=== PATIENT | female | born 1960 | race Caucasian/White ===

== ENCOUNTER → 2016-12-14 | Outpatient (CLI) | payer BC ==
--- NOTE | 2016-12-14 14:26 | US ---
EXAMINATION: Soft tissue ultrasound of the neck HISTORY: Lump COMPARISON: None TECHNIQUE: Grayscale and color Doppler images obtained within the region of concern. FINDINGS: There is an oval well-circumscribed mass measuring 0.4 x 0.9 cm. This likely represents a nonpathologically enlarged cervical chain lymph node. There is no significant internal color Doppler flow. No shadowing. IMPRESSION: Small oval mass likely representing a nonpathologically enlarged cervical chain lymph no de.
== END ==
LOC: MW.US 09:56
PROVIDERS: ATTEND Family Medicine
DX: R22.1 Localized swelling, mass and lump, neck (principal); E11.9 Type 2 diabetes mellitus without complications
CPT/HCPCS: 76536-26; 76536-50; 81001

== ENCOUNTER 2019-10-07 09:52 | Emergency (ER) | payer BC, MEDICAID ==
[2019-10-07] MEDS ORDERED: Morphine 2 MG/ML Syringe IVPUSH ONE (10:46)
[2019-10-07] MEDS ORDERED: Ondansetron 4 MG/2 ML SDV IVPUSH ONE (10:46)
[2019-10-07 10:50] LABS: BLOOD UREA NITROGEN,BUN 14 mg/dL (7.0-18.0); CARBON DIOXIDE,CO2 31.7 mmol/L (21.0-32.0); CHLORIDE,CL 103 mmol/L (98-107); GLUCOSE RANDOM 124 mg/dL (74-106); SODIUM,NA 141 mmol/L (136-145)
--- NOTE | 2019-10-07 11:02 | EDM.PDOC ---
ED HPI GENERAL MEDICAL PROBLEM - General Chief Complaint: General Stated Complaint: CANT WALK Time Seen by Provider: 10/07/19 09:58 Source of Information: Reports: Patient History Limitations: Reports: No Limitations - History of Present Illness INITIAL COMMENTS - FREE TEXT/NARRATIVE: HISTORY AND PHYSICAL: History of present illness: Patient is a 59-year-old female who presents to the ED today with concern of progressive leg weakness over the past approximately 1 week, urinary incontinence, and mid to low back pain. Patient states she has had chronic back pain in which she has been working with the neurosurgeon Dr. Blue at [facility] in [place]. Patient states that at some point she thought she would need a fusion as she has some spinal stenosis and degenerative disc disease. Patient states that it has been several months since she has seen him. Patient states that over the course of the past week she has been having progressive leg weakness and is now unable to walk and get around. Patient states that her has been carrying her around the house and carried her into the ED today. Patient does state she has also been more constipated. Patient denies any other symptoms or concerns. Patient denies fever, chills, chest pain, shortness of breath, or cough. Denies headache, neck stiff ness, change in vision, syncope, or near syncope. Denies nausea, vomiting, abdominal pain, or dysuria. Has not noted any blood in urine or stool. Patient has been eating and drinking appropriately. Review of systems: As per history of present illness and below otherwise all systems reviewed and negative. Past medical history: As per history of present illness and as reviewed below otherwise noncontributory. Surgical history: As per history of present illness and as reviewed below otherwise noncontributory. Social history: See social history for further information Family history: As per history of present illness and as reviewed below otherwise noncontributory. Physical exam: General: Patient is alert, oriented, and in no acute distress. Patient laying comfortably on exam table. HEENT: Atraumatic, normocephalic, pupils equal and reactive bilaterally, negative for conjunctival pallor or scleral icterus, mucous membranes moist, TMs normal bilaterally, throat clear, neck supple, nontender, trachea midline. No drooling or trismus noted. No meningeal signs. No hot potato voice noted. Lungs: Clear to auscultation, breath sounds equal bilaterally, chest nontender. Heart: S1S2, regular rate and rhythm without overt murmur Abdomen: Soft, nondistended, nontender. Negative for masses or hepatosplenomegaly. Negative for costovertebral tenderness. Pelvis: Stable nontender. Genitourinary: Deferred. Rectal: Patient is wearing an attens. Tone slightly diminished but intact. Perineal sensation intact. There is early stages of breakdown of the skin of the coccyx without sign of infection. Skin: Intact, warm, dry. No lesions or rashes noted. Extremities: Atraumatic, negative for cords or calf pain. Neurovascular unremarkable. Neuro: Awake, alert, oriented. Cranial nerves II through XII unremarkable. Patient is able to bend bilateral lower extremities but unable to SLR bilaterally. Right LE slightly more weak than the left. Notes: Dr. Matos directly involved in patient care. Patient does have leg weakness and requires emergent MRI. Dr. Jeronimo, [facility], consulted on patient and accepting of transfer. Flight is arranged. Voices understanding and is agreeable to plan of care. Denies any further questions or concerns at this time. Diagnostics: CBC, CMP, UA, INR, Trop, EKG Therapeutics: Morphine, Zofran Impression: Bilateral leg weakness, new onset r/o spinal cord compression Urinary inconstance, new onset Low back pain Plan: Transfer to [facility] via flight to Dr. Jeronimo. Definitive disposition and diagnosis as appropriate pending reevaluation and review of above. chest Pain Score (Numeric/FACES): 7 middle back Pain Score (Numeric/FACES): 7 - Related Data Allergies Allergy/AdvReac Type Severity Reaction Status Date / Time cephalexin monohydrate Allergy Airway Verified 10/07/19 10:13 [From Keflex] Tightness haloperidol [From Haldol] Allergy Airway Verified 10/07/19 10:13 Tightness haloperidol lactate Allergy Airway Verified 10/07/19 10:13 [From Haldol] Tightness lisinopril Allergy Airway Verified 10/07/19 10:13 Tightness Penicillins Allergy Airway Verified 10/07/19 10:13 Tightness pertussis vaccine,fluid Allergy Airway Verified 10/07/19 10:13 [Pertussis Vaccine,Fluid] Tightness Home Meds: Home Meds Albuterol [Proair HFA] 2 puff INH Q6H PRN 06/21/14 [History] Losartan Potassium 1 tab PO DAILY 06/21/14 [History] hydroCHLOROthiazide [Hydrochlorothiazide] 1 cap PO DAILY 06/21/14 [History] metFORMIN [Glucophage] 1 tab PO BID 06/21/14 [History] Aspirin 1 dose PO ASDIRECTED 05/31/15 [History] Budesonide/Formoterol [Symbicort 80-4.5 MCG] 1 dose INH ASDIRECTED 05/31/15 [ History] FLUoxetine [PROzac] 1 dose PO ASDIRECTED 05/31/15 [History] Gabapentin [Neurontin] 100 mg PO BID 05/31/15 [History] Meloxicam [Mobic] 1 dose PO DAILY 05/31/15 [History] OXcarbazepine [Trileptal] 1 dose PO ASDIRECTED 05/31/15 [History] Omeprazole [Prilosec] 1 dose PO ASDIRECTED 05/31/15 [History] Past Medical History HEENT History: Reports: Cataract, Sinusitis Cardiovascular History: Reports: Hypertension, Other (See Below) Other Cardiovascular History: Pericardial Effusion Respiratory History: Reports: Asthma, COPD Gastrointestinal History: Reports: Diverticulosis, Gastritis, Irritable Bowel Syndrome, Other (See Below) Other Gastrointestinal History: Abdominal Hernia. Gastric Ulver Genitourinary History: Reports: Diabetic Nephropathy, UTI, Recurrent STORES CLERK History: Reports: None Musculoskeletal History: Reports: Arthritis, Back Pain, Chronic, Osteoarthritis , Other (See Below) Other Musculoskeletal History: Degenerative Bone Disease, spinal stenosis Neurological History: Reports: Migraines Psychiatric History: Reports: Anxiety, Depression, Panic Attack, Other (See Below) Other Psychiatric History: ETOH abuse Endocrine/Metabolic History: Reports: Diabetes, Type II Hematologic History: Reports: Anemia, Other (See Below) Other Hematologic History: Leukocytosis Immunologic History: Reports: None Oncologic (Cancer) History: Reports: None Dermatologic History: Reports: None - Infectious Disease History Infectious Disease History: Reports: MRSA - Past Surgical History Head Surgeries/Procedures: Reports: None HEENT Surgical History: Reports: None Cardiovascular Surgical History: Reports: Other (See Below) Other Cardiovascular Surgeries/Procedures: Pericardial effusion Respiratory Surgical History: Reports: None GI Surgical History: Reports: None Female Surgical History: Reports: None Endocrine Surgical History: Reports: None Neurological Surgical History: Reports: None Musculoskeletal Surgical History: Reports: None Oncologic Surgical History: Reports: None Dermatological Surgical History: Reports: None Social & Family History - Family History Family Medical History: Noncontributory - Tobacco Use Smoking Status *Q: Former Smoker Used Tobacco, but Quit: Yes Month/Year Tobacco Last Used: 2 months - Caffeine Use Caffeine Use: Reports: None - Recreational Drug Use Recreational Drug Use: No ED ROS GENERAL - Review of Systems Review Of Systems: Comprehensive ROS is negative, except as noted in HPI. ED EXAM, GENERAL - Physical Exam Exam: See Below (see dictation) Course - Vital Signs Last Recorded V/S: Last Vital Signs Temp 96.9 F 10/07/19 11:05 Pulse 62 10/07/19 11:05 Resp 18 10/07/19 11:05 BP 129/93 H 10/07/19 11:05 Pulse Ox 92 L 10/07/19 11:05 - Orders/Labs/Meds Orders: Active Orders 24 hr Category Date Time Status EKG Documentation Completion [RC] STAT Care 10/07/19 10:31 Active Wilkinson Catheter Insertion [Insert Urinary Catheter] [OM. Care 10/07/19 12:30 Ordered PC] Q24H Urinary Catheter Assessment [RC] ASDIRECTED Care 10/07/19 12:22 Active Labs: Laboratory Tests 10/07/19 10/07/19 10/07/19 Range/Units 10:15 10:15 10:15 WBC 10.26 (4.0-11.0) K/uL RBC 3.96 L (4.30-5.90) M/uL Hgb 12.3 (12.0-16.0) g/dL Hct 36.3 (36.0-46.0) % MCV 91.7 (80.0-98.0) fL MCH 31.1 (27.0-32.0) pg MCHC 33.9 (31.0-37.0) g/dL RDW Std Deviation 51.2 (28.0-62.0) fl RDW Coeff of Phi 15 (11.0-15.0) % Plt Count 289 (150-400) K/uL MPV 8.70 (7.40-12.00) fL Neut % (Auto) 73.7 (48.0-80.0) % Lymph % (Auto) 17.6 (16.0-40.0) % [place] % (Auto) 5.3 (0.0-15.0) % Eos % (Auto) 2.9 (0.0-7.0) % Baso % (Auto) 0.5 (0.0-1.5) % Neut # (Auto) 7.6 H (1.4-5.7) K/uL Lymph # (Auto) 1.8 (0.6-2.4) K/uL [place] # (Auto) 0.5 (0.0-0.8) K/uL Eos # (Auto) 0.3 (0.0-0.7) K/uL Baso # (Auto) 0.1 (0.0-0.1) K/uL Nucleated RBC % 0.0 /100WBC Nucleated RBCs # 0 K/uL INR 0.91 Sodium 141 (136-145) mmol/L Potassium 4.0 (3.5-5.1) mmol/L Chloride 103 (98-107) mmol/L Carbon Dioxide 31.7 (21.0-32.0) mmol/L BUN 14 (7.0-18.0) mg/dL Creatinine 0.5 L (0.6-1.0) mg/dL Est Cr Clr Drug Dosing 112.77 mL/min Estimated GFR (MDRD) > 60.0 ml/min Glucose 124 H (74-106) mg/dL Calcium 9.1 (8.5-10.1) mg/dL Total Bilirubin 0.2 (0.2-1.0) mg/dL AST 20 (15-37) IU/L ALT 33 (14-63) IU/L Alkaline Phosphatase 78 (46-116) U/L Troponin I (0.000-0.056) ng/mL Total Protein 6.8 (6.4-8.2) g/dL Albumin 3.5 (3.4-5.0) g/dL Globulin 3.3 (2.6-4.0) g/dL Albumin/Globulin Ratio 1.1 (0.9-1.6) Urine Color Urine Appearance Urine pH (5.0-8.0) Ur Specific [place] (1.001-1.035) Urine Protein (NEGATIVE) mg/dL Urine Glucose (UA) (NEGATIVE) mg/dL Urine Ketones (NEGATIVE) mg/dL Urine Occult Blood (NEGATIVE) Urine Nitrite (NEGATIVE) Urine Bilirubin (NEGATIVE) Urine Urobilinogen (<2.0) EU/dL Ur Leukocyte Esterase (NEGATIVE) 10/07/19 10/07/19 Range/Units 10:15 11:01 WBC (4.0-11.0) K/uL RBC (4.30-5.90) M/uL Hgb (12.0-16.0) g/dL Hct (36.0-46.0) % MCV (80.0-98.0) fL MCH (27.0-32.0) pg MCHC (31.0-37.0) g/dL RDW Std Deviation (28.0-62.0) fl RDW Coeff of Phi (11.0-15.0) % Plt Count (150-400) K/uL MPV (7.40-12.00) fL Neut % (Auto) (48.0-80.0) % Lymph % (Auto) (16.0-40.0) % [place] % (Auto) (0.0-15.0) % Eos % (Auto) (0.0-7.0) % Baso % (Auto) (0.0-1.5) % Neut # (Auto) (1.4-5.7) K/uL Lymph # (Auto) (0.6-2.4) K/uL [place] # (Auto) (0.0-0.8) K/uL Eos # (Auto) (0.0-0.7) K/uL Baso # (Auto) (0.0-0.1) K/uL Nucleated RBC % /100WBC Nucleated RBCs # K/uL INR Sodium (136-145) mmol/L Potassium (3.5-5.1) mmol/L Chloride (98-107) mmol/L Carbon Dioxide (21.0-32.0) mmol/L BUN (7.0-18.0) mg/dL Creatinine (0.6-1.0) mg/dL Est Cr Clr Drug Dosing mL/min Estimated GFR (MDRD) ml/min Glucose (74-106) mg/dL Calcium (8.5-10.1) mg/dL Total Bilirubin (0.2-1.0) mg/dL AST (15-37) IU/L ALT (14-63) IU/L Alkaline Phosphatase (46-116) U/L Troponin I < 0.050 (0.000-0.056) ng/mL Total Protein (6.4-8.2) g/dL Albumin (3.4-5.0) g/dL Globulin (2.6-4.0) g/dL Albumin/Globulin Ratio (0.9-1.6) Urine Color YELLOW Urine Appearance CLEAR Urine pH 6.5 (5.0-8.0) Ur Specific [place] <= 1.005 (1.001-1.035) Urine Protein NEGATIVE (NEGATIVE) mg/dL Urine Glucose (UA) NEGATIVE (NEGATIVE) mg/dL Urine Ketones NEGATIVE (NEGATIVE) mg/dL Urine Occult Blood NEGATIVE (NEGATIVE) Urine Nitrite NEGATIVE (NEGATIVE) Urine Bilirubin NEGATIVE (NEGATIVE) Urine Urobilinogen 0.2 (<2.0) EU/dL Ur Leukocyte Esterase NEGATIVE (NEGATIVE) Meds: Medications Discontinued Medications Generic Name Dose Route Start Last Admin Trade Name Winnie PRN Reason Stop Dose Admin Morphine Sulfate 2 mg 10/07/19 10:46 10/07/19 10:56 Morphine IVPUSH 10/07/19 10:47 2 mg ONETIME ONE Administration Ondansetron HCl 4 mg 10/07/19 10:46 10/07/19 10:56 Zofran IVPUSH 10/07/19 10:47 4 mg ONETIME ONE Administration Departure - Departure Time of Disposition: 11:02 Disposition: DC/Tfer to [facility] 02 Clinical Impression: Lower extremity weakness Qualifiers: Laterality: bilateral Qualified Code(s): R29.898 - Other symptoms and signs involving the musculoskeletal system Urinary incontinence Qualifiers: Urinary Incontinence type: unspecified incontinence Qualified Code(s): R32 - Unspecified urinary incontinence Low back pain Qualifiers: Chronicity: acute Back pain laterality: unspecified Sciatica presence: unspecified whether sciatica present Qualified Code(s): M54.5 - Low back pain - Discharge Information Referrals: Govind Perdomo MD [Primary Care Provider] - Forms: ED Department Discharge Sepsis Event Note - Evaluation Sepsis Screening Result: No Definite Risk - Focused Exam Vital Signs: Vital Signs Temp Pulse Resp BP Pulse Ox 10/07/19 11:05 96.9 F 62 18 129/93 H 92 L 10/07/19 10:14 96.6 F 65 18 143/74 H 98 Date Exam was Performed: 10/07/19 Time Exam was Performed: 14:23 - My Orders Last 24 Hours: My Active Orders 10/07/19 10:31 EKG Documentation Completion [RC] STAT 10/07/19 12:22 Urinary Catheter Assessment [RC] ASDIRECTED 10/07/19 12:30 Wilkinson Catheter Insertion [Insert Urinary Catheter] [OM.PC] Q24H - Assessment/Plan Last 24 Hours: My Active Orders 10/07/19 10:31 EKG Documentation Completion [RC] STAT 10/07/19 12:22 Urinary Catheter Assessment [RC] ASDIRECTED 10/07/19 12:30 Wilkinson Catheter Insertion [Insert Urinary Catheter] [OM.PC] Q24H
[2019-10-07 11:07] VITALS: BP 129/93; PULSE 62
== END 2019-10-07 12:41 ==
LOC: MW.ED 09:52
DX: R32 Unspecified urinary incontinence (principal); M54.5 Low back pain; R29.91 Unspecified symptoms and signs involving the musculoskeletal system; I10 Essential (primary) hypertension; J44.9 Chronic obstructive pulmonary disease, unspecified; E11.40 Type 2 diabetes mellitus with diabetic neuropathy, unspecified; F41.9 Anxiety disorder, unspecified; F32.9 Major depressive disorder, single episode, unspecified; Z87.891 Personal history of nicotine dependence; Z88.8 Allergy status to other drugs, medicaments and biological substances; Z88.0 Allergy status to penicillin; Z88.7 Allergy status to serum and vaccine; Z88.1 Allergy status to other antibiotic agents; Z79.899 Other long term (current) drug therapy; Z79.82 Long term (current) use of aspirin; Z79.84 Long term (current) use of oral hypoglycemic drugs
CPT/HCPCS: 36415; 51702; 80053; 81003; 84484; 85025; 85610; 93005; 96374; 96375; 99285; J2270; J2405

== ENCOUNTER 2019-10-11 02:15 | Emergency (ER) | payer BC ==
[2019-10-11] MEDS ORDERED: Glycerin Pediatric 1.2 GM Supp RECTAL ONE (03:19)
[2019-10-11] MEDS ORDERED: Sodium Chloride 0.9% 1,000 ML IV ONE (03:34)
--- NOTE | 2019-10-11 03:39 | CR ---
Indication: Abdominal pain, constipation Technique: Abdomen 1 view, 2 films Comparison: None Findings/Impression: Air is present within large and small intestine with a moderate amount of stool within the colon. Somewhat more amorphous loop of bowel within the left abdomen, possibly part of transverse colon although this could represent part of a small-bowel loop. Question whether this could represent part of a sentinel ileus with a small bowel obstruction possible although somewhat less likely. Serial radiographs may be useful in this differentiation as clinically desired. Status post lumbar spine surgery with skin vinayak as well as right upper quadrant surgical clips. Dictated by Hood Lamas MD @ Oct 11 2019 3:33AM Signed by Dr. Hood Lamas @ Oct 11 2019 3:37AM
[2019-10-11] MEDS: Bisacodyl 10 MG Supp RECTAL ONE ×2 (03:41→03:49)
[2019-10-11 04:03] LABS: BLOOD UREA NITROGEN,BUN 13 mg/dL (7.0-18.0); CARBON DIOXIDE,CO2 32.2 mmol/L (21.0-32.0); CHLORIDE,CL 93 mmol/L (98-107); GLUCOSE RANDOM 111 mg/dL (74-106); LIPASE 57 U/L (73-393); POTASSIUM,K 4.2 mmol/L (3.5-5.1); SODIUM,NA 132 mmol/L (136-145)
--- NOTE | 2019-10-11 05:02 | CR ---
INDICATION: Weakness TECHNIQUE: Chest 1 views COMPARISON: Chest x-ray 07/29/2018 FINDINGS: Cardiovascular and mediastinum: Heart size and vasculature are normal in caliber and appearance. Lungs and pleural spaces: Mild hyperinflation with reticulonodular interstitial prominence. Bones and soft tissues: Rightward curvature thoracic spine. IMPRESSION: Mild hyperinflation suggesting underlying emphysema or reactive airways disease. Reticulonodular interstitial prominence is mostly similar to the prior examination and likely represents mild pulmonary fibrosis. However, this does appear to be asymmetrically greater within the left midlung which could represent progressive fibrosis or if there are signs/symptoms of infection, a bronchiolitis. Dictated by Hood Lamas MD @ Oct 11 2019 4:58AM Signed by Dr. Hood Lamas @ Oct 11 2019 5:01AM
[2019-10-11] MEDS ORDERED: Doxycycline 100 MG Cap PO ONE (05:07)
--- NOTE | 2019-10-11 05:10 | EDM.PDOC ---
ED HPI GENERAL MEDICAL PROBLEM - General Chief Complaint: Back Pain or Injury Stated Complaint: AMB Time Seen by Provider: 10/11/19 02:22 - History of Present Illness INITIAL COMMENTS - FREE TEXT/NARRATIVE: HPI 59-year-old female with an apparent history of spinal stenosis now postop day ~ 4 from low T-spine/high L spine surgery (in [place], patient unsure of details , records presently unavailable), presents complaining of one day of generalized malaise and weakness without localizing symptoms. Patient reports that she is been at home for one day and is been feeling unwell. Patient has not stooled since her surgery. Patient continues to take PO adequately. Triage note: EMS states patient had back surgery Saturday morning. Currently having back pain, dizziness this evening. M/S/F/SocHx notable for: please see HPI; remainder reviewed with patient and in chart. ROS: Negative constitutional, eye, cardiovascular, pulmonary, GI, , MSK, skin , neurologic, psychiatric, endocrine unless noted in the HPI. Exam HR 75, BP 122/6 9, RR 17, T 35.8C, SaO2 93% on room air. Gen: Pleasant, non-toxic appearing, resting comfortably. HEENT: NC, AT, PEERL, EOMI. Resp: Clear to auscultation bilaterally, normal work of breathing, no accessory muscle usage. Card: Regular rate and rhythm with no murmurs, rubs, or gallops, extremities warm and well perfused. GI: Non-tender to palpation throughout all quadrants, no focal tenderness at McBurney's point, negative Gonzales's sign, non-distended, no rebound or guarding. : No suprapubic tenderness to palpation. MSK: No visible deformities, strength and tone without visually appreciable deficit. Skin: Normal color with no visible lesions. Neuro: alert and oriented 3, no facial asymmetry, vision and hearing WNL. Low T-spine/high L spine with a well-healing midline surgical incision, vinayak intact. Minimal surrounding reactive erythema, no fluctuance or crepitus. Psych: Mood and affect appropriate. Labs / Imaging: UA - rare bacteria, rare epithelial cells, negative nitrate, small leukocyte esterase. WBC 14.4, HB 12.1, sodium 132, potassium 4.2, EtOH <3. lactic acid 0.8 KUB: Air is present within large and small intestine with a moderate amount of stool within the colon. Somewhat more amorphous loop of bowel within the left abdomen, possibly part of transverse colon although this could represent part of a small-bowel loop. Question whether this could represent part of a sentinel ileus with a small bowel obstruction possible although somewhat less likely. Serial radiographs may be useful in this differentiation as clinically desired. Status post lumbar spine surgery with skin vinayak as well as right upper quadrant surgical clips. CXR: Mild hyperinflation suggesting underlying emphysema or reactive airways disease. Reticulonodular interstitial prominence is mostly similar to the prior examination and likely represents mild pulmonary fibrosis. However, this does appear to be asymmetrically greater within the left midung which could represent progressive fibrosis or if there are signs/symptoms of infection, a bronchiolitis. MDM Previous chart, nursing note, labs, imaging, and vitals reviewed. A: 59-year-old female with an apparent history of spinal stenosis now postop day ~4 from low T-spine/high L spine surgery (in [place], patient unsure of details, records presently unavailable), presents complaining of one day of generalized malaise and weakness without localizing symptoms. DDx: dehydration, electrolyte abnormalities, pneumonia, UTI, surgical site infection, surgical site hematoma. Evaluation: patient without discernible abnormalities, UA without clear evidence of infection, abdominal exam benign, KUB demonstrate constipation ( although ileus of possible SBO is noted on the radiology read, this does not fit with the patients overall clinical history), surgical site is without evidence of infection, and the patient has normal perineal sensation and normal rectal tone (observed during enema administration). Chest x-ray is suggestive of possible pneumonia, given the patients intubation and multiple risk factors (as well as evaluation below), it was felt to be in her best interest to treat empirically. However there is no cough or fever suggesting against pneumonia. It is not clear if the patient has a clinically significant acute process. The patient had a post void residual of 118 MLs, this was concerning for possible retention, as this may be driven by constipation (rather than surgical site complications), the patients constipation was treated and she was given 1 L NS hydration to expedite bladder filling. The patient had good urine output, voided again, and had a post void residual of 147 MLs. Throughout this time the patient was without any further signs of cauda equina syndrome. The patient s neurosurgeon, Dr. Cerda by phone, the patients laboratory studies, including leukocytosis), physical exam, bladder scans, and the remainder the evaluation reviewed. For a postoperative patient for cauda equina syndrome was felt that post void bladder volumes up to 150 ML is normal and not customer retention representative of acute pathology. The leukocytosis was not felt to represent infection, rather normal postoperative changes. There are no features at the time of the patients care to suggest epidural infection (absence of fever, tenderness, overlying changes, and normal neuro exam) or epidural hematoma. Disposition: patient was discharged with routine follow-up and return to care precautions. Impression: weakness, constipation, ?pneumonia. - Related Data Allergies Allergy/AdvReac Type Severity Reaction Status Date / Time buspirone Allergy Itching Verified 10/11/19 02:24 cefuroxime [From Ceftin] Allergy Other Verified 10/11/19 02:24 cephalexin monohydrate Allergy Airway Verified 10/11/19 02:24 [From Keflex] Tightness haloperidol [From Haldol] Allergy Airway Verified 10/11/19 02:24 Tightness haloperidol lactate Allergy Airway Verified 10/11/19 02:24 [From Haldol] Tightness lisinopril Allergy Airway Verified 10/11/19 02:24 Tightness Penicillins Allergy Airway Verified 10/11/19 02:24 Tightness pertussis vaccine,fluid Allergy Airway Verified 10/11/19 02:24 [Pertussis Vaccine,Fluid] Tightness Sulfa (Sulfonamide Allergy Other Verified 10/11/19 02:24 Antibiotics) Home Meds: Home Meds Albuterol [Proair HFA] 2 puff INH Q6H PRN 06/21/14 [History] Losartan Potassium 1 tab PO DAILY 06/21/14 [History] hydroCHLOROthiazide [Hydrochlorothiazide] 1 cap PO DAILY 06/21/14 [History] metFORMIN [Glucophage] 1 tab PO BID 06/21/14 [History] Aspirin 1 dose PO ASDIRECTED 05/31/15 [History] Budesonide/Formoterol [Symbicort 80-4.5 MCG] 1 dose INH ASDIRECTED 05/31/15 [ History] FLUoxetine [PROzac] 1 dose PO ASDIRECTED 05/31/15 [History] Gabapentin [Neurontin] 100 mg PO BID 05/31/15 [History] Meloxicam [Mobic] 1 dose PO DAILY 05/31/15 [History] OXcarbazepine [Trileptal] 1 dose PO ASDIRECTED 05/31/15 [History] Omeprazole [Prilosec] 1 dose PO ASDIRECTED 05/31/15 [History] ARIPiprazole [Abilify] mg PO DAILY 10/11/19 [History] Cyclobenzaprine [Flexeril] mg PO ASDIRECTED PRN 10/11/19 [History] Doxycycline [Vibramycin] 100 mg PO DAILY #19 tab 10/11/19 [Rx] Hydrocodone/Acetaminophen [Hydrocodon-Acetaminophen 5-325] PO ASDIRECTED PRN 05/22 [History] traZODone HCl [Trazodone HCl] 150 mg PO BEDTIME 10/11/19 [History] Past Medical History HEENT History: Reports: Cataract, Sinusitis Cardiovascular History: Reports: Hypertension, Other (See Below) Other Cardiovascular History: Pericardial Effusion Respiratory History: Reports: Asthma, COPD Gastrointestinal History: Reports: Diverticulosis, Gastritis, Irritable Bowel Syndrome, Other (See Below) Other Gastrointestinal History: Abdominal Hernia. Gastric Ulver Genitourinary History: Reports: Diabetic Nephropathy, UTI, Recurrent STUDENT FINANCE SPECIALIST History: Reports: None Musculoskeletal History: Reports: Arthritis, Back Pain, Chronic, Osteoarthritis , Other (See Below) Other Musculoskeletal History: Degenerative Bone Disease, spinal stenosis Neurological History: Reports: Migraines Psychiatric History: Reports: Anxiety, Depression, Panic Attack, Other (See Below) Other Psychiatric History: ETOH abuse Endocrine/Metabolic History: Reports: Diabetes, Type II Hematologic History: Reports: Anemia, Other (See Below) Other Hematologic History: Leukocytosis Immunologic History: Reports: None Oncologic (Cancer) History: Reports: None Dermatologic History: Reports: None - Infectious Disease History Infectious Disease History: Reports: MRSA - Past Surgical History Head Surgeries/Procedures: Reports: None HEENT Surgical History: Reports: None Cardiovascular Surgical History: Reports: Other (See Below) Other Cardiovascular Surgeries/Procedures: Pericardial effusion Respiratory Surgical History: Reports: None GI Surgical History: Reports: None Female Surgical History: Reports: None Endocrine Surgical History: Reports: None Neurological Surgical History: Reports: None Musculoskeletal Surgical History: Reports: None Oncologic Surgical History: Reports: None Dermatological Surgical History: Reports: None Social & Family History - Family History Family Medical History: Noncontributory - Tobacco Use Smoking Status *Q: Former Smoker Used Tobacco, but Quit: Yes Month/Year Tobacco Last Used: 2019 - Caffeine Use Caffeine Use: Reports: Coffee - Recreational Drug Use Recreational Drug Use: Yes Recreational Drug Type: Reports: Marijuana/Hashish Recreational Drug Use Frequency: Daily ED ROS GENERAL - Review of Systems Review Of Systems: See Below ED EXAM, GENERAL - Physical Exam Exam: See Below Course - Vital Signs Last Recorded V/S: Last Vital Signs Temp 35.8 C 10/11/19 02:27 Pulse 75 10/11/19 02:27 Resp 17 10/11/19 02:27 BP 122/69 10/11/19 02:27 Pulse Ox 93 L 10/11/19 02:27 - Orders/Labs/Meds Orders: Active Orders 24 hr Category Date Time Status Communication Order [RC] STAT Care 10/11/19 03:19 Active Enema [RC] ASDIRECTED Care 10/11/19 03:19 Active Labs: Laboratory Tests 10/11/19 10/11/19 10/11/19 Range/Units 02:32 03:40 03:40 WBC 14.84 H (4.0-11.0) K/uL RBC 3.85 L (4.30-5.90) M/uL Hgb 12.1 (12.0-16.0) g/dL Hct 34.6 L (36.0-46.0) % MCV 89.9 (80.0-98.0) fL MCH 31.4 (27.0-32.0) pg MCHC 35.0 (31.0-37.0) g/dL RDW Std Deviation 48.6 (28.0-62.0) fl RDW Coeff of Phi 15 (11.0-15.0) % Plt Count 316 (150-400) K/uL MPV 8.70 (7.40-12.00) fL Add Manual Diff YES Neutrophils % (Manual) 72 (48.0-80.0) % Lymphocytes % (Manual) 10 L (16.0-40.0) % Monocytes % (Manual) 13 (0.0-15.0) % Eosinophils % (Manual) 5 (0.0-7.0) % Nucleated RBC % 0.0 /100WBC Absolute Seg Neuts 10.7 H (1.4-5.7) Lymphocytes # (Manual) 1.5 (0.6-2.4) Monocytes # (Manual) 1.9 H (0.0-0.8) Eosinophils # (Manual) 0.7 (0.0-0.7) Nucleated RBCs # 0 K/uL Lactate 0.8 (0.20-2.00) mmol/L Sodium (136-145) mmol/L Potassium (3.5-5.1) mmol/L Chloride (98-107) mmol/L Carbon Dioxide (21.0-32.0) mmol/L BUN (7.0-18.0) mg/dL Creatinine (0.6-1.0) mg/dL Est Cr Clr Drug Dosing mL/min Estimated GFR (MDRD) ml/min Glucose (74-106) mg/dL Calcium (8.5-10.1) mg/dL Total Bilirubin (0.2-1.0) mg/dL AST (15-37) IU/L ALT (14-63) IU/L Alkaline Phosphatase (46-116) U/L Total Protein (6.4-8.2) g/dL Albumin (3.4-5.0) g/dL Globulin (2.6-4.0) g/dL Albumin/Globulin Ratio (0.9-1.6) Lipase (73-393) U/L Urine Color YELLOW Urine Appearance CLEAR Urine pH 7.0 (5.0-8.0) Ur Specific Cheshire <= 1.005 (1.001-1.035) Urine Protein NEGATIVE (NEGATIVE) mg/dL Urine Glucose (UA) NEGATIVE (NEGATIVE) mg/dL Urine Ketones NEGATIVE (NEGATIVE) mg/dL Urine Occult Blood NEGATIVE (NEGATIVE) Urine Nitrite NEGATIVE (NEGATIVE) Urine Bilirubin NEGATIVE (NEGATIVE) Urine Urobilinogen 0.2 (<2.0) EU/dL Ur Leukocyte Esterase SMALL H (NEGATIVE) Urine RBC 0-1 (0-2/HPF) Urine WBC 0-2 (0-5/HPF) Ur Epithelial Cells RARE (NONE-FEW) Urine Bacteria RARE (NEGATIVE) Ethyl Alcohol mg/dL 10/11/19 10/11/19 Range/Units 03:40 03:40 WBC (4.0-11.0) K/uL RBC (4.30-5.90) M/uL Hgb (12.0-16.0) g/dL Hct (36.0-46.0) % MCV (80.0-98.0) fL MCH (27.0-32.0) pg MCHC (31.0-37.0) g/dL RDW Std Deviation (28.0-62.0) fl RDW Coeff of Phi (11.0-15.0) % Plt Count (150-400) K/uL MPV (7.40-12.00) fL Add Manual Diff Neutrophils % (Manual) (48.0-80.0) % Lymphocytes % (Manual) (16.0-40.0) % Monocytes % (Manual) (0.0-15.0) % Eosinophils % (Manual) (0.0-7.0) % Nucleated RBC % /100WBC Absolute Seg Neuts (1.4-5.7) Lymphocytes # (Manual) (0.6-2.4) Monocytes # (Manual) (0.0-0.8) Eosinophils # (Manual) (0.0-0.7) Nucleated RBCs # K/uL Lactate (0.20-2.00) mmol/L Sodium 132 L (136-145) mmol/L Potassium 4.2 (3.5-5.1) mmol/L Chloride 93 L (98-107) mmol/L Carbon Dioxide 32.2 H (21.0-32.0) mmol/L BUN 13 (7.0-18.0) mg/dL Creatinine 0.5 L (0.6-1.0) mg/dL Est Cr Clr Drug Dosing 112.77 mL/min Estimated GFR (MDRD) > 60.0 ml/min Glucose 111 H (74-106) mg/dL Calcium 9.6 (8.5-10.1) mg/dL Total Bilirubin 0.3 (0.2-1.0) mg/dL AST 26 (15-37) IU/L ALT 42 (14-63) IU/L Alkaline Phosphatase 85 (46-116) U/L Total Protein 7.6 (6.4-8.2) g/dL Albumin 3.4 (3.4-5.0) g/dL Globulin 4.2 H (2.6-4.0) g/dL Albumin/Globulin Ratio 0.8 L (0.9-1.6) Lipase 57 L (73-393) U/L Urine Color Urine Appearance Urine pH (5.0-8.0) Ur Specific Cheshire (1.001-1.035) Urine Protein (NEGATIVE) mg/dL Urine Glucose (UA) (NEGATIVE) mg/dL Urine Ketones (NEGATIVE) mg/dL Urine Occult Blood (NEGATIVE) Urine Nitrite (NEGATIVE) Urine Bilirubin (NEGATIVE) Urine Urobilinogen (<2.0) EU/dL Ur Leukocyte Esterase (NEGATIVE) Urine RBC (0-2/HPF) Urine WBC (0-5/HPF) Ur Epithelial Cells (NONE-FEW) Urine Bacteria (NEGATIVE) Ethyl Alcohol <3 mg/dL Meds: Medications Discontinued Medications Generic Name Dose Route Start Last Admin Trade Name Laronq PRN Reason Stop Dose Admin Bisacodyl 10 mg 10/11/19 03:19 10/11/19 03:49 Dulcolax RECTAL 10/11/19 03:20 Not Given ONETIME ONE Doxycycline Hyclate 100 mg 10/11/19 05:07 Vibramycin PO 10/11/19 05:08 ONETIME ONE Glycerin 1.5 gm 10/11/19 03:19 10/11/19 03:49 Sani-Supp Pediatric RECTAL 10/11/19 03:20 Not Given ONETIME ONE Sodium Chloride 1,000 mls @ 1,000 mls/hr 10/11/19 03:34 10/11/19 03:41 Normal Saline IV 10/11/19 04:33 1,000 mls/hr .Bolus ONE Administration Departure - Departure Time of Disposition: 05:08 Disposition: Home, Self-Care 01 Clinical Impression: Weakness, Constipation - Discharge Information Prescriptions: Doxycycline [Vibramycin] 100 mg PO DAILY #19 tab Referrals: PCP,None [Primary Care Provider] - Additional Instructions: You were in seen in the [facility] Emergency Department for evaluation of weakness, at the time of your evaluation you were found to be constipated and there were features on your asks rate suggestive (but not definitively diagnostic) of pneumonia, you have been prescribed doxycycline for treatment of the possible pneumonia. No further significant abnormalities were noted. Should you have any further changes in your symptoms please return immediately to the emergency department. Please read and follow all of the instructions below. Please follow up with your primary care physician within 2 days for repeat evaluation further care as needed. When calling for follow-up care, please make the office aware that this follow-up is from your recent emergency room visit. If for any reason you are refused follow-up, please contact the [facility] Emergency Department at and asked to speak to the emergency department charge nurse. Your care today was limited to identifying and treating emergent medical problems only. Many people have subtle differences in their test results that require follow up with their outpatient physician(s) to correctly determine if this represents a normal variation or concerning abnormality with respect to your specific health. The care given to you today was limited to identifying and treating emergent medical problems - you need to request a copy of all of your medical records from today's visit and follow up with your outpatient physician(s) to review both today's visit and your overall health. If you have any new symptoms or if you are at all concerned about your health please return immediately to the emergency department. Prescriptions: If you are uninsured or have financial difficulties with filling your prescription(s), you may consider using a free pharmacy discount service such as [employer] ([employer]) or [employer] ([employer]). These services allow you to search for a medication on your phone (or computer) and obtain a coupon that usually has a significant discount from the list byers at a pharmacy. Your physician as well as [facility] does not have a financial relationship with either of these services. You may also wish to speak with your physician to determine if lower cost prescriptions are possible. Obtaining primary care: 1. [facility] provides pediatrics (children), family medicine (children, adults, and some obstetrical care), and internal medicine (adults). Further specialty care is also available. Same day appointments are available. They may be contacted at [phone] and are open Saturday through Saturday 8 AM to [address] [facility] are located at [facility], [address] [place] [address]. 2. [facility] offers family medicine, internal medicine, womens health, and further specialty care. [facility] may be contacted at [phone]. [facility] is located at [address] [place], [address]. 3. If you have health insurance, please also contact your insurer for a list of accepting providers under your policy, you may contact these providers for further health care. Occupational health: Work related injuries may consider following up with [facility], . Occupational health services are located at [address] [place] [address] and are open Saturday through Saturday from 7: 30 am to 5:00 pm. Obstetrical and Gynecological Care: [facility], , Saturday through Saturday 8 AM to 5 PM. [address], [place] [address]. Eyecare: If you have an eye injury you should follow up with your dental ceramist or with [facility], at [phone] or [phone] , they are located at [address] [place] [address]. Dental Care David Manjarrez DDS. [address] [place], [place]. Ph. [phone] Rip Manjarrez DDS MS. [address] [facility] 104, [place], [place]. Ph. Jf Cordero DDS. [address] [place] [address]. Ph. [phone] Mehdi Mckeon DDS. [address] [facility] 4 [place], [place]. Ph. [phone] Mo Guerrero DDS PC. [address] [facility] [[email or web address]] [address] [place], [place]. Ph. [phone] Nydia Dover DDS. [address] [facility]. Ph. [phone] [facility]. [address] [place], [place]. Ph. [phone] [facility]. [address] [place] [address], [place], [place]. Ph. [phone] [facility] [address] [place] [address]. Ph. Sincemanisha Cho. [address] [place] [address] 1. [place], [place]. Ph. [phone] [facility]. [address] [facility] [place] Ph. [phone] Pneumonia Pneumonia is an infection of the lungs that causes coughing, fever, and trouble breathing. It is a serious illness, especially in young children, people older than 65, and people with other health problems. Pneumonia is usually caused by bacteria but can also be caused by viruses or other germs. You have been prescribed an antibiotic and possibly a steroid (prednisone). Take the antibiotic for the entire prescription. Return if you have difficulty breathing, chest pain, shaking chills, lighheadedness, shortness of breath, a temperature greater than 102F, lightheaded, or are otherwise concerned about your health. You may take Ibuprofen (Motrin) and Acetaminophen (Tylenol) as directed on the bottle for relief of pain. Stay well hydrated and get plenty of rest. Please see you primary care physician if you do not start to feel better in 3-5 days. You should also receive a yearly influenza vaccine and a pneumococcal pneumonia vaccine every 5 years Doxycycline (Brand Name: Vibramycin) Please take this medication as prescribed. Please take the medication for the full duration of the precription. If you feel you are experiencing a side effect, please call your physician or the emergency department. This medication may rarely cause mild to severe rashes that hurt with exposure to sunlight. Please stop this medication and contact your doctor if you have a rash. WARNING/CAUTION: Even though it may be rare, some people may have very bad and sometimes deadly side effects when taking a drug. Tell your doctor or get medical help right away if you have any of the following signs or symptoms that may be related to a very bad side effect: Signs of an allergic reaction, like rash; hives; itching; red, swollen, blistered, or peeling skin with or without fever; wheezing; tightness in the chest or throat; trouble breathing or talking; unusual hoarseness; or swelling of the mouth, face, lips, tongue, or throat. Signs of liver problems like dark urine, feeling tired, not hungry, upset stomach or stomach pain, light-colored stools, throwing up, or yellow skin or eyes. Chest pain. Not able to pass urine or change in how much urine is passed. Fever or chills. Sore throat. Throat irritation. Trouble swallowing. Any bruising or bleeding that is not normal. Joint pain. Feeling very tired or weak. Vaginal itching or discharge. It is common to have diarrhea when taking this drug. Rarely, a very bad form of diarrhea called Clostridium difficile (C diff)-associated diarrhea (CDAD ) may occur. Sometimes, this has led to a deadly bowel problem (colitis). CDAD may happen while you are taking this drug or within a few months after you stop taking it. Call your doctor right away if you have stomach pain or cramps, very loose or watery stools, or bloody stools. Do not try to treat loose stools without first checking with your doctor. Raised pressure in the brain has happened with this drug. Most of the time, this will go back to normal after this drug is stopped. Sometimes, loss of eyesight may happen and may not go away even after this drug is stopped. Call your doctor right away if you have a headache or eyesight problems like blurred eyesight, seeing double, or loss of eyesight. A very bad skin reaction (Recio-Yon syndrome/toxic epidermal necrolysis) may happen. It can cause very bad health problems that may not go away, and sometimes . Get medical help right away if you have signs like red, swollen, blistered, or peeling skin (with or without fever); red or irritated eyes; or sores in your mouth, throat, nose, or eyes. What are some other side effects of this drug? All drugs may cause side effects. However, many people have no side effects or only have minor side effects. Call your doctor or get medical help if any of these side effects or any other side effects bother you or do not go away: Not hungry. Upset stomach or throwing up. Loose stools (diarrhea). These are not all of the side effects that may occur. If you have questions about side effects, call your doctor. Call your doctor for medical advice about side effects. What do I need to tell my doctor BEFORE I take this drug? If you have an allergy to doxycycline or any other part of this drug. If you are allergic to any drugs like this one, any other drugs, foods, or other substances. Tell your doctor about the allergy and what signs you had, like rash; hives; itching; shortness of breath; wheezing; cough; swelling of face, lips, tongue, or throat; or any other signs. If you are taking any of these drugs: Acitretin, isotretinoin, or a penicillin. This is not a list of all drugs or health problems that interact with this drug. Tell your doctor and pharmacist about all of your drugs (prescription or OTC , natural products, vitamins) and health problems. You must check to make sure that it is safe for you to take this drug with all of your drugs and health problems. Do not start, stop, or change the dose of any drug without checking with your doctor. What are some things I need to know or do while I take this drug? You may get sunburned more easily. Avoid sun, sunlamps, and tanning beds. Use sunscreen and wear clothing and eyewear that protects you from the sun. control pills and other hormone-based control may not work as well to prevent . Use some other kind of control also like a condom when taking this drug. This drug may cause a change in tooth color to [id number] in children younger than 8 years old. If this change of tooth color happens, it will not go away. Talk with the doctor. Do not give to a child younger than 8 years old unless other drugs cannot be used or have not worked. Talk with the doctor. This drug may cause harm to the unborn baby if you take it while you are . Tell your doctor if you are or plan on getting . You will need to talk about the benefits and risks of using this drug while you are . Tell your doctor if you are breast-feeding. You will need to talk about any risks to your baby. Sepsis Event Note - Evaluation Sepsis Screening Result: No Definite Risk - Focused Exam Vital Signs: Vital Signs Temp Pulse Resp BP Pulse Ox 10/11/19 02:27 35.8 C 75 17 122/69 93 L Date Exam was Performed: 10/11/19 Time Exam was Performed: 05:08 - My Orders Last 24 Hours: My Active Orders 10/11/19 03:19 Communication Order [RC] STAT Enema [RC] ASDIRECTED - Assessment/Plan Last 24 Hours: My Active Orders 10/11/19 03:19 Communication Order [RC] STAT Enema [RC] ASDIRECTED
[2019-10-11 05:37] VITALS: BP 120/81; PULSE 70
== END 2019-10-11 05:35 | disposition home or self-care (01) ==
LOC: MW.ED 02:15
DX: R53.1 Weakness (principal); K59.00 Constipation, unspecified; I10 Essential (primary) hypertension; J44.9 Chronic obstructive pulmonary disease, unspecified; E11.40 Type 2 diabetes mellitus with diabetic neuropathy, unspecified; F41.9 Anxiety disorder, unspecified; F32.9 Major depressive disorder, single episode, unspecified; Z87.891 Personal history of nicotine dependence; Z88.8 Allergy status to other drugs, medicaments and biological substances; Z88.1 Allergy status to other antibiotic agents; Z88.0 Allergy status to penicillin; Z88.7 Allergy status to serum and vaccine; Z88.2 Allergy status to sulfonamides; Z79.899 Other long term (current) drug therapy; Z79.82 Long term (current) use of aspirin; Z79.84 Long term (current) use of oral hypoglycemic drugs
CPT/HCPCS: 36415; 71045; 74018; 80053; 80307; 81001; 83605; 83690; 85025; 96360; 99284; A9270; J7030

== ENCOUNTER 2022-01-16 11:42 | Inpatient (IN) | payer BC ==
[2022-01-16] MEDS ORDERED: Sodium Chloride 0.9% 10 ML Syringe FLUSH PRN (12:15)
[2022-01-16] MEDS: Sodium Chloride 0.9% 2.5 ML Syringe FLUSH PRN ×2 (12:17→14:02)
[2022-01-16 12:38] LABS: BLOOD UREA NITROGEN,BUN 17 mg/dL (7.0-18.0); CARBON DIOXIDE,CO2 27.3 mmol/L (21.0-32.0); CHLORIDE,CL 89 mmol/L (98-107); GLUCOSE RANDOM 188 mg/dL (74-106); POTASSIUM,K 3.6 mmol/L (3.5-5.1); SODIUM,NA 127 mmol/L (136-145)
[2022-01-16 12:41] LABS: LIPASE 8 U/L (73-393)
[2022-01-16] MEDS ORDERED: Ondansetron 4 MG/2 ML SDV IVPUSH ONE (12:49)
[2022-01-16] MEDS ORDERED: Sodium Chloride 0.9% 1,000 ML IV ONE ×2 (12:49→14:53)
[2022-01-16] MEDS ORDERED: HYDROmorphone 1 MG/ML Syringe IVPUSH ONE (12:49)
[2022-01-16] MEDS ORDERED: Ketorolac 30 MG/ML SDV IVPUSH ONE (12:50)
[2022-01-16] MEDS ORDERED: Iopamidol 755 MG/ML 500 ML Multipack Bottle IVPUSH STA (15:48)
[2022-01-16] MEDS ORDERED: HYDROmorphone 2 MG/ML Syringe IVPUSH ONE (15:59)
[2022-01-16] MEDS ORDERED: Meropenem 1 GM in Sodium Chloride 0.9% 100 ML IV ONE (16:24)
[2022-01-16] MEDS ORDERED: VANCOmycin 1.25 GM/250 ML 1.25 GM in Premix Bag 1 BAG IV ONE (17:00)
[2022-01-16] MEDS ORDERED: Meropenem Premix 1 GM in Premix Bag 1 BAG IV ONE (17:00)
[2022-01-16] MEDS ORDERED: Albuterol/Ipratropium 3.0-0.5 MG/3 ML Neb Soln NEB PRN (17:58)
[2022-01-16] MEDS ORDERED: Ondansetron 4 MG/2 ML SDV IVPUSH PRN (18:04)
[2022-01-16] MEDS ORDERED: Albuterol 8 GM Inhaler INH PRN (18:08)
[2022-01-16] MEDS: Enoxaparin 40 MG/0.4 ML Syringe SUBCUT SCH (18:13)
[2022-01-16] MEDS ORDERED: Non-Formulary Medication 1 Each (Oxcarbazepine 150 MG Tablet) PO SCH (18:15)
[2022-01-16] MEDS ORDERED: FORMOTEROL INH SCH (18:15)
[2022-01-16] MEDS ORDERED: OMEPRAZOLE 10 MG PO SCH (18:15)
[2022-01-16] MEDS ORDERED: BUDESONIDE INH SCH (18:15)
[2022-01-16 19:07] LABS: BLOOD UREA NITROGEN,BUN 18 mg/dL (7.0-18.0); CARBON DIOXIDE,CO2 27.6 mmol/L (21.0-32.0); CHLORIDE,CL 95 mmol/L (98-107); GLUCOSE RANDOM 87 mg/dL (74-106); POTASSIUM,K 3.6 mmol/L (3.5-5.1); SODIUM,NA 132 mmol/L (136-145)
[2022-01-16] MEDS ORDERED: traZODone 50 MG Tab PO SCH (21:00)
[2022-01-16] MEDS: Acetaminophen 325 MG Tab PO PRN (21:02)
[2022-01-16] MEDS: Lactated Ringers 1,000 ML IV SCH (21:58)
[2022-01-17] MEDS: Meropenem Premix 50 ML IV SCH ×3 (00:30→16:52)
[2022-01-17] MEDS: Acetaminophen 325 MG Tab PO PRN ×4 (00:38→21:13)
[2022-01-17] MEDS: Lactated Ringers 1,000 ML IV SCH ×5 (04:11→21:08)
[2022-01-17] MEDS: HYDROmorphone 1 MG/ML Syringe IVPUSH PRN ×2 (06:07→11:24)
[2022-01-17] MEDS ORDERED: metFORMIN 500 MG Tab PO SCH (08:00)
[2022-01-17] MEDS: Pantoprazole 40 MG in Sodium Chloride 0.9% 10 ML IVPUSH SCH (08:22)
[2022-01-17] MEDS: Losartan 50 MG Tab PO SCH (08:24)
[2022-01-17] MEDS: Meloxicam 7.5 MG Tab PO SCH (08:25)
[2022-01-17 08:26] LABS: BLOOD UREA NITROGEN,BUN 13 mg/dL (7.0-18.0); CARBON DIOXIDE,CO2 26.1 mmol/L (21.0-32.0); CHLORIDE,CL 97 mmol/L (98-107); GLUCOSE RANDOM 71 mg/dL (74-106); POTASSIUM,K 4.1 mmol/L (3.5-5.1); SODIUM,NA 135 mmol/L (136-145)
[2022-01-17] MEDS: Hydrochlorothiazide 12.5 MG Cap PO SCH (08:26)
[2022-01-17] MEDS ORDERED: Non-Formulary Medication 1 Each (Aripiprazole 2 MG Tablet) PO SCH (09:00)
[2022-01-17] MEDS ORDERED: ARIPIPRAZOLE 2 MG PO SCH (09:00)
[2022-01-17] MEDS: Enoxaparin 40 MG/0.4 ML Syringe SUBCUT SCH (17:32)
[2022-01-17] MEDS: Rosuvastatin 10 MG Tab PO SCH (21:09)
[2022-01-17] MEDS: amLODIPine 5 MG Tab PO SCH (21:10)
[2022-01-18] MEDS: Meropenem Premix 50 ML IV SCH ×3 (01:19→17:20)
[2022-01-18] MEDS: Lactated Ringers 1,000 ML IV SCH ×2 (01:24→10:28)
[2022-01-18] MEDS: Acetaminophen 325 MG Tab PO PRN ×4 (05:52→20:58)
[2022-01-18 06:19] LABS: BLOOD UREA NITROGEN,BUN 5 mg/dL (7.0-18.0); CHLORIDE,CL 96 mmol/L (98-107); GLUCOSE RANDOM 85 mg/dL (74-106); POTASSIUM,K 3.5 mmol/L (3.5-5.1); SODIUM,NA 134 mmol/L (136-145)
[2022-01-18] MEDS: Meloxicam 7.5 MG Tab PO SCH (09:20)
[2022-01-18] MEDS: Losartan 50 MG Tab PO SCH (09:20)
[2022-01-18] MEDS: Hydrochlorothiazide 12.5 MG Cap PO SCH (09:20)
[2022-01-18] MEDS: Pantoprazole 40 MG in Sodium Chloride 0.9% 10 ML IVPUSH SCH (10:30)
[2022-01-18] MEDS: HYDROmorphone 1 MG/ML Syringe IVPUSH PRN (11:17)
[2022-01-18] MEDS: Enoxaparin 40 MG/0.4 ML Syringe SUBCUT SCH (17:20)
[2022-01-18] MEDS: Rosuvastatin 10 MG Tab PO SCH ×2 (20:56→23:38)
[2022-01-18] MEDS: Gabapentin 300 MG Cap PO SCH (20:57)
[2022-01-18] MEDS: amLODIPine 5 MG Tab PO SCH (21:00)
[2022-01-19] MEDS: Lactated Ringers 1,000 ML IV SCH ×5 (00:13→21:29)
[2022-01-19] MEDS: Meropenem Premix 50 ML IV SCH ×3 (01:42→21:20)
[2022-01-19] MEDS: HYDROmorphone 1 MG/ML Syringe IVPUSH PRN ×2 (01:52→14:43)
[2022-01-19 07:18] LABS: BLOOD UREA NITROGEN,BUN 3 mg/dL (7.0-18.0); CHLORIDE,CL 94 mmol/L (98-107); GLUCOSE RANDOM 141 mg/dL (74-106); POTASSIUM,K 3.1 mmol/L (3.5-5.1); SODIUM,NA 131 mmol/L (136-145)
[2022-01-19] MEDS: amLODIPine 5 MG Tab PO SCH ×2 (09:26→21:26)
[2022-01-19] MEDS: Hydrochlorothiazide 12.5 MG Cap PO SCH (09:26)
[2022-01-19] MEDS: Meloxicam 7.5 MG Tab PO SCH (09:27)
[2022-01-19] MEDS: Losartan 50 MG Tab PO SCH (09:27)
[2022-01-19] MEDS: FLUoxetine 20 MG Cap PO SCH (09:27)
[2022-01-19] MEDS: Venlafaxine 75 MG Cap.ER PO SCH (09:27)
[2022-01-19] MEDS: Gabapentin 300 MG Cap PO SCH ×2 (09:28→21:24)
[2022-01-19] MEDS: Acetaminophen 325 MG Tab PO PRN (09:31)
[2022-01-19] MEDS: Pantoprazole 40 MG in Sodium Chloride 0.9% 10 ML IVPUSH SCH (10:23)
[2022-01-19] MEDS ORDERED: Potassium Chloride 20 MEQ Tab.ER PO ONE (11:23)
[2022-01-19] MEDS: Enoxaparin 40 MG/0.4 ML Syringe SUBCUT SCH (18:57)
[2022-01-19] MEDS: Rosuvastatin 10 MG Tab PO SCH (21:24)
[2022-01-20] MEDS: Lactated Ringers 1,000 ML IV SCH ×2 (01:07→10:19)
[2022-01-20] MEDS: Meropenem Premix 50 ML IV SCH ×2 (05:16→14:20)
[2022-01-20 07:13] LABS: BLOOD UREA NITROGEN,BUN 3 mg/dL (7.0-18.0); CARBON DIOXIDE,CO2 32.3 mmol/L (21.0-32.0); CHLORIDE,CL 95 mmol/L (98-107); GLUCOSE RANDOM 137 mg/dL (74-106); POTASSIUM,K 3.4 mmol/L (3.5-5.1); SODIUM,NA 132 mmol/L (136-145)
[2022-01-20] MEDS: Acetaminophen 325 MG Tab PO PRN (08:48)
[2022-01-20] MEDS: FLUoxetine 20 MG Cap PO SCH (09:36)
[2022-01-20] MEDS: Meloxicam 7.5 MG Tab PO SCH (09:36)
[2022-01-20] MEDS: Pantoprazole 40 MG in Sodium Chloride 0.9% 10 ML IVPUSH SCH (09:36)
[2022-01-20] MEDS: Gabapentin 300 MG Cap PO SCH (09:36)
[2022-01-20] MEDS: Venlafaxine 75 MG Cap.ER PO SCH (09:36)
[2022-01-20] MEDS: Losartan 50 MG Tab PO SCH (09:37)
[2022-01-20] MEDS: Hydrochlorothiazide 12.5 MG Cap PO SCH (09:37)
[2022-01-20] MEDS: amLODIPine 5 MG Tab PO SCH (09:37)
[2022-01-20 11:13] VITALS: BP 112/70; PULSE 69
[2022-01-20] MEDS ORDERED: Potassium Chloride 20 MEQ Tab.ER PO ONE (11:19)
[2022-01-20] MEDS ORDERED: Magnesium Sulfate/Water 2 GM in Premix Bag 1 BAG IV ONE (11:20)
== END 2022-01-20 15:39 | disposition home or self-care (01) | DRG 244 ==
LOC: MW.ED 11:42 → MW.MS 16:47
PROVIDERS: ADMIT Internal Medicine; ATTEND Internal Medicine
DX: K57.32 Diverticulitis of large intestine without perforation or abscess without bleeding (principal); J18.9 Pneumonia, unspecified organism; E87.1 Hypo-osmolality and hyponatremia; E87.8 Other disorders of electrolyte and fluid balance, not elsewhere classified; E86.0 Dehydration; Z20.822 Contact with and (suspected) exposure to COVID-19; J44.9 Chronic obstructive pulmonary disease, unspecified; I10 Essential (primary) hypertension; E11.9 Type 2 diabetes mellitus without complications; K57.90 Diverticulosis of intestine, part unspecified, without perforation or abscess without bleeding; K58.9 Irritable bowel syndrome, unspecified; E11.21 Type 2 diabetes mellitus with diabetic nephropathy; M19.90 Unspecified osteoarthritis, unspecified site; M48.56XA Collapsed vertebra, not elsewhere classified, lumbar region, initial encounter for fracture; G89.29 Other chronic pain; G43.909 Migraine, unspecified, not intractable, without status migrainosus; F41.9 Anxiety disorder, unspecified; M54.50 Low back pain, unspecified; F32.A Depression, unspecified; D64.9 Anemia, unspecified; Z86.14 Personal history of Methicillin resistant Staphylococcus aureus infection; Z88.0 Allergy status to penicillin; Z87.440 Personal history of urinary (tract) infections; Z88.8 Allergy status to other drugs, medicaments and biological substances; Z88.1 Allergy status to other antibiotic agents; Z79.82 Long term (current) use of aspirin; Z79.84 Long term (current) use of oral hypoglycemic drugs; Z79.899 Other long term (current) drug therapy
CPT/HCPCS: 36415; 71045; 71045-26; 72148; 72148-26; 74177; 74177-26; 80048; 80053; 80202; 81001; 82947; 83605; 83690; 83735; 84484; 85008; 85025; 85027; 87040; 87154; 93005; 96361; 96365; 96375; 96376; 97110-GP; 97116-GP; 97163-GP; 97530-GP; 99285-25; A9270-GY; C9113; J1170; J1650; J1885; J2185; J2405; J3370; J3475; J3490; J7030; J7050; J7120; Q9967; U0002

== ENCOUNTER 2022-02-13 10:13 | Observation (INO) | payer BC ==
[2022-02-13] MEDS ORDERED: Sodium Chloride 0.9% 10 ML Syringe FLUSH PRN ×2 (10:37→16:11)
[2022-02-13] MEDS ORDERED: Sodium Chloride 0.9% 2.5 ML Syringe FLUSH PRN ×2 (10:37→16:11)
[2022-02-13] MEDS ORDERED: Sodium Chloride 0.9% 1,000 ML IV ONE (10:45)
[2022-02-13] MEDS ORDERED: Ondansetron 4 MG/2 ML SDV IVPUSH ONE (10:46)
[2022-02-13] MEDS ORDERED: HYDROmorphone 1 MG/ML Syringe IVPUSH ONE (11:36)
[2022-02-13 11:44] LABS: CARBON DIOXIDE,CO2 28.8 mmol/L (21.0-32.0); POTASSIUM,K 3.3 mmol/L (3.5-5.1)
[2022-02-13 11:45] LABS: ESTIMATED GFR 102.1 ml/min
[2022-02-13] MEDS ORDERED: Iopamidol 755 MG/ML 500 ML Multipack Bottle IVPUSH STA (12:16)
[2022-02-13 12:28] LABS: CORONAVIRUS COVID-19 NAA NEGATIVE (NEGATIVE); INFLUENZA A NAA NEGATIVE (NEGATIVE); INFLUENZA B NAA NEGATIVE (NEGATIVE)
[2022-02-13] MEDS ORDERED: Pantoprazole 80 MG in Sodium Chloride 0.9% 10 ML IVPUSH ONE (15:38)
[2022-02-13] MEDS ORDERED: Albuterol/Ipratropium 3.0-0.5 MG/3 ML Neb Soln NEB PRN (16:11)
[2022-02-13] MEDS ORDERED: 50% Dextrose in Water 50 ML Syringe IVPUSH PRN (16:15)
[2022-02-13] MEDS ORDERED: Glucagon,Human Recombinant 1 MG Vial IM PRN (16:15)
[2022-02-13] MEDS ORDERED: NS with KCl 40mEq 1,000 ML IV ONE (17:00)
[2022-02-13] MEDS ORDERED: Albuterol 8 GM Inhaler INH PRN (17:03)
[2022-02-13] MEDS: Insulin Aspart 100 Units/ML 3 ML Pen SUBCUT SCH (17:06)
[2022-02-13] MEDS: Vancomycin 125 MG Cap PO SCH ×2 (17:06→23:33)
[2022-02-13] MEDS ORDERED: Promethazine 25 MG/ML SDV IM PRN (17:07)
[2022-02-13] MEDS: Morphine 2 MG/ML SYRINGE IVPUSH PRN ×2 (17:33→20:49)
[2022-02-13] MEDS: Tiotropium Inhaler 18 MCG Inhalation Powder Cap Kit of 5 INH SCH (20:41)
[2022-02-14] MEDS: Insulin Aspart 100 Units/ML 3 ML Pen SUBCUT SCH ×4 (00:04→17:30)
[2022-02-14] MEDS: Morphine 2 MG/ML SYRINGE IVPUSH PRN (03:12)
[2022-02-14] MEDS: Lactated Ringers 1,000 ML IV SCH ×2 (03:13→12:59)
[2022-02-14] MEDS: Vancomycin 125 MG Cap PO SCH ×4 (05:30→23:17)
[2022-02-14 07:13] LABS: CARBON DIOXIDE,CO2 25.2 mmol/L (21.0-32.0); POTASSIUM,K 4.3 mmol/L (3.5-5.1)
[2022-02-14] MEDS: Pantoprazole 40 MG in Sodium Chloride 0.9% 10 ML IVPUSH SCH (09:04)
[2022-02-14] MEDS: Tiotropium Inhaler 18 MCG Inhalation Powder Cap Kit of 5 INH SCH ×2 (09:05→20:50)
[2022-02-14] MEDS: Venlafaxine 75 MG Cap.ER PO SCH (11:38)
[2022-02-14] MEDS: Acetaminophen/HYDROcodone 325-5 MG Tab PO PRN ×3 (13:35→23:17)
[2022-02-15] MEDS: Vancomycin 125 MG Cap PO SCH (05:41)
[2022-02-15] MEDS: Acetaminophen/HYDROcodone 325-5 MG Tab PO PRN ×2 (05:41→09:54)
[2022-02-15 06:59] LABS: CARBON DIOXIDE,CO2 28.2 mmol/L (21.0-32.0); POTASSIUM,K 3.7 mmol/L (3.5-5.1)
[2022-02-15] MEDS: Insulin Aspart 100 Units/ML 3 ML Pen SUBCUT SCH (08:54)
[2022-02-15 09:43] VITALS: BP 114/66; PULSE 83
[2022-02-15] MEDS: Tiotropium Inhaler 18 MCG Inhalation Powder Cap Kit of 5 INH SCH (09:44)
[2022-02-15] MEDS: Pantoprazole 40 MG in Sodium Chloride 0.9% 10 ML IVPUSH SCH (09:44)
[2022-02-15] MEDS: Venlafaxine 75 MG Cap.ER PO SCH (09:44)
== END 2022-02-15 13:20 | disposition home or self-care (01) ==
LOC: MW.ED 10:13 → MW.MS 15:53
PROVIDERS: ADMIT Internal Medicine; ATTEND Internal Medicine
DX: E86.0 Dehydration (principal); R11.2 Nausea with vomiting, unspecified; E87.1 Hypo-osmolality and hyponatremia; R19.7 Diarrhea, unspecified; J44.9 Chronic obstructive pulmonary disease, unspecified; I10 Essential (primary) hypertension; D72.829 Elevated white blood cell count, unspecified; F41.9 Anxiety disorder, unspecified; F32.A Depression, unspecified; G43.909 Migraine, unspecified, not intractable, without status migrainosus; E11.21 Type 2 diabetes mellitus with diabetic nephropathy; G89.29 Other chronic pain; M54.50 Low back pain, unspecified; Z98.0 Intestinal bypass and anastomosis status; Z20.822 Contact with and (suspected) exposure to COVID-19; Z88.8 Allergy status to other drugs, medicaments and biological substances; Z88.0 Allergy status to penicillin; Z98.890 Other specified postprocedural states; Z88.2 Allergy status to sulfonamides; Z88.7 Allergy status to serum and vaccine; Z79.899 Other long term (current) drug therapy
CPT/HCPCS: 0240U; 36415; 74177; 74177-26; 80048; 80053; 81003; 82947; 83690; 83735; 84100; 84484; 85025; 87040; 93005; 96361; 96372; 96374; 96375; 97110-GP; 97162-GP; 99285-25; A9270-GY; C9113; J1170; J1815-GY; J2270; J2405; J2550; J3480; J3490; J7030; J7120; Q9967

== ENCOUNTER 2022-03-12 11:51 | Emergency (ER) | payer BC ==
[2022-03-12] MEDS ORDERED: HYDROmorphone 2 MG/ML Syringe IM ONE (17:11)
[2022-03-12 17:27] LABS: CARBON DIOXIDE,CO2 24.9 mmol/L (21.0-32.0); POTASSIUM,K 3.6 mmol/L (3.5-5.1)
[2022-03-12 17:31] VITALS: BP 144/100; PULSE 119
== END 2022-03-12 17:46 ==
LOC: MW.ED 11:51
DX: T81.49XA Infection following a procedure, other surgical site, initial encounter (principal); R53.1 Weakness; J44.9 Chronic obstructive pulmonary disease, unspecified; E11.21 Type 2 diabetes mellitus with diabetic nephropathy; I10 Essential (primary) hypertension; Z88.1 Allergy status to other antibiotic agents; Z88.8 Allergy status to other drugs, medicaments and biological substances; Z88.7 Allergy status to serum and vaccine; Z88.0 Allergy status to penicillin; Z88.2 Allergy status to sulfonamides; Z79.899 Other long term (current) drug therapy; Z86.16 Personal history of COVID-19
CPT/HCPCS: 36415; 80053; 85025; 85652; 86140; 87040; 87154; 96372; 99285; J1170; 87077; 87186

== ENCOUNTER 2022-08-27 10:29 | Emergency (ER) | payer BC ==
[2022-08-27 10:49] VITALS: BP 117/89; PULSE 97
[2022-08-27] MEDS ORDERED: Cyclobenzaprine 10 MG Tab PO ONE (11:06)
[2022-08-27] MEDS ORDERED: Ketorolac 30 MG/ML SDV IM STA (11:06)
== END 2022-08-27 13:04 | disposition home or self-care (01) ==
LOC: MW.ED 10:29
DX: S39.012A Strain of muscle, fascia and tendon of lower back, initial encounter (principal); S76.912A Strain of unspecified muscles, fascia and tendons at thigh level, left thigh, initial encounter; S76.012A Strain of muscle, fascia and tendon of left hip, initial encounter; I10 Essential (primary) hypertension; J44.9 Chronic obstructive pulmonary disease, unspecified; E11.21 Type 2 diabetes mellitus with diabetic nephropathy; M19.90 Unspecified osteoarthritis, unspecified site; Z98.890 Other specified postprocedural states; Z88.8 Allergy status to other drugs, medicaments and biological substances; Z88.1 Allergy status to other antibiotic agents; Z88.7 Allergy status to serum and vaccine; Z88.0 Allergy status to penicillin; Z88.2 Allergy status to sulfonamides; Z79.82 Long term (current) use of aspirin; Z79.899 Other long term (current) drug therapy
CPT/HCPCS: 73502; 96372; 99283; A9270; J1885

== ENCOUNTER 2022-09-17 07:56 | Emergency (ER) | payer BC ==
[2022-09-17] MEDS ORDERED: Sodium Chloride 0.9% 2.5 ML Syringe FLUSH PRN (08:03)
[2022-09-17] MEDS ORDERED: Ondansetron 4 MG/2 ML SDV IVPUSH ONE (08:03)
[2022-09-17] MEDS ORDERED: Sodium Chloride 0.9% 10 ML Syringe FLUSH PRN (08:03)
[2022-09-17] MEDS ORDERED: Sodium Chloride 0.9% 1,000 ML IV ONE ×2 (08:03→11:42)
[2022-09-17 08:59] LABS: CORONAVIRUS COVID-19 NAA NEGATIVE (NEGATIVE); INFLUENZA A NAA NEGATIVE (NEGATIVE); INFLUENZA B NAA NEGATIVE (NEGATIVE); RESPIRATORY SYNCYTIAL VIR NAA NEGATIVE (NEGATIVE)
[2022-09-17 09:01] LABS: CARBON DIOXIDE,CO2 31.9 mmol/L (21.0-32.0); POTASSIUM,K 3.2 mmol/L (3.5-5.1)
[2022-09-17] MEDS ORDERED: Iopamidol 755 MG/ML 500 ML Multipack Bottle IVPUSH STA (10:13)
[2022-09-17 14:22] VITALS: BP 177/95; PULSE 100
== END 2022-09-17 14:20 | disposition home or self-care (01) ==
LOC: MW.ED 07:56
DX: E86.0 Dehydration (principal); K52.9 Noninfective gastroenteritis and colitis, unspecified; K29.70 Gastritis, unspecified, without bleeding; I10 Essential (primary) hypertension; J44.9 Chronic obstructive pulmonary disease, unspecified; M19.90 Unspecified osteoarthritis, unspecified site; E11.21 Type 2 diabetes mellitus with diabetic nephropathy; Z87.891 Personal history of nicotine dependence; Z88.8 Allergy status to other drugs, medicaments and biological substances; Z88.1 Allergy status to other antibiotic agents; Z88.0 Allergy status to penicillin; Z88.7 Allergy status to serum and vaccine; Z88.2 Allergy status to sulfonamides; Z79.82 Long term (current) use of aspirin; Z79.899 Other long term (current) drug therapy; Z90.49 Acquired absence of other specified parts of digestive tract; Z98.890 Other specified postprocedural states; Z20.822 Contact with and (suspected) exposure to COVID-19
CPT/HCPCS: 0241U; 36415; 71045; 74177; 80053; 81003; 83605; 83690; 85025; 87040; 93005; 96361; 96374; 99284; J2405; J3490; J7030; Q9967; 93010

== ENCOUNTER 2022-12-03 10:40 | Emergency (ER) | payer BC ==
[2022-12-03] MEDS ORDERED: cefTRIAXone 1 GM in Sodium Chloride 0.9% 50 ML IV ONE (10:47)
[2022-12-03] MEDS ORDERED: Ondansetron 4 MG/2 ML SDV IVPUSH ONE ×2 (10:47→16:33)
[2022-12-03] MEDS ORDERED: OCTREOTIDE ONE (10:49)
[2022-12-03] MEDS ORDERED: Pantoprazole 40 MG in Sodium Chloride 0.9% 10 ML IVPUSH ONE (10:50)
[2022-12-03] MEDS ORDERED: fentaNYL 50 MCG/ML SDV IVPUSH ONE ×2 (10:55→12:17)
[2022-12-03] MEDS ORDERED: Lactated Ringers 1,000 ML IV ONE ×2 (11:03→11:42)
[2022-12-03] MEDS ORDERED: Octreotide 100 MCG/1 ML Amp IV ONE (11:30)
[2022-12-03 11:44] LABS: CARBON DIOXIDE,CO2 26.7 mmol/L (21.0-32.0)
[2022-12-03] MEDS ORDERED: Iopamidol 755 MG/ML 500 ML Multipack Bottle IVPUSH STA (12:53)
[2022-12-03 15:39] LABS: CARBON DIOXIDE,CO2 27.1 mmol/L (21.0-32.0); POTASSIUM,K 4.5 mmol/L (3.5-5.1)
[2022-12-03] MEDS ORDERED: Etomidate 2 MG/ML 20 ML SDV IVPUSH ONE (17:04)
[2022-12-03] MEDS ORDERED: Rocuronium 50 MG/5 ML Vial ONE (17:05)
[2022-12-03] MEDS ORDERED: Tranexamic Acid 1,000 MG/10 ML Vial IV ONE (17:08)
[2022-12-03] MEDS ORDERED: Norepinephrine Bit/D5W Premix 250 ML IV SCH (17:15)
[2022-12-03] MEDS ORDERED: fentaNYL 100 MCG/2 ML SDV ONE (17:18)
[2022-12-03] MEDS ORDERED: Norepinephrine Bit/D5W Premix 250 ML ONE (17:20)
[2022-12-03] MEDS ORDERED: fentaNYL 100 MCG/2 ML SDV IVPUSH ONE (17:28)
[2022-12-03] MEDS ORDERED: Tranexamic Acid 1,000 MG in Sodium Chloride 0.9% 100 ML IV ONE (17:45)
[2022-12-03] MEDS ORDERED: Calcium Chloride 10% 1 GM/10 ML Syringe IVPUSH ONE (17:49)
[2022-12-03 18:42] VITALS: PULSE 102
[2022-12-03 20:09] VITALS: BP 101/65
== END 2022-12-03 19:15 ==
LOC: MW.ED 10:40
DX: K25.4 Chronic or unspecified gastric ulcer with hemorrhage (principal); I10 Essential (primary) hypertension; J44.9 Chronic obstructive pulmonary disease, unspecified; E11.21 Type 2 diabetes mellitus with diabetic nephropathy; M19.90 Unspecified osteoarthritis, unspecified site; Z88.1 Allergy status to other antibiotic agents; Z88.0 Allergy status to penicillin; Z88.7 Allergy status to serum and vaccine; Z88.8 Allergy status to other drugs, medicaments and biological substances; Z88.2 Allergy status to sulfonamides; Z79.899 Other long term (current) drug therapy; Z79.82 Long term (current) use of aspirin; Z86.16 Personal history of COVID-19
CPT/HCPCS: 31500; 36415; 36430; 36620; 43752; 51702; 71045; 71275; 74175; 80053; 83605; 83735; 83880; 84484; 85025; 85610; 85730; 86850; 86900; 86901; 86920; 93005; 96361; 96365; 96366; 96367; 96375; 96376; 99291; 99292; C9113; J0696; J2405; J3010; J3490; J7050; J7120; P9016; P9017; Q9967; 93010; 99285

== ENCOUNTER 2023-03-26 09:26 | Emergency (ER) | payer BC ==
[2023-03-26] MEDS ORDERED: Sodium Chloride 0.9% 2.5 ML Syringe FLUSH PRN (09:58)
[2023-03-26] MEDS ORDERED: Sodium Chloride 0.9% 10 ML Syringe FLUSH PRN (09:58)
[2023-03-26] MEDS ORDERED: fentaNYL 100 MCG/2 ML SDV IVPUSH ONE ×2 (10:00→12:52)
[2023-03-26] MEDS ORDERED: Naloxone 0.4 MG/ML SDV IVPUSH PRN (10:00)
[2023-03-26] MEDS ORDERED: Pantoprazole 80 MG in Sodium Chloride 0.9% 10 ML IVPUSH ONE (10:03)
[2023-03-26 10:15] LABS: BASOPHILS PERCENT AUTO 0.3 % (0.0-1.5); EOSINOPHILS PERCENT AUTO 0.2 % (0.0-7.0); HEMATOCRIT 42.3 % (36.0-46.0); HEMOGLOBIN 13.8 g/dL (12.0-16.0); INR 0.99 (0.86-1.11); LYMPHOCYTES ABSOLUTE AUTO 1.1 K/uL (0.6-2.4); LYMPHOCYTES PERCENT AUTO 12.1 % (16.0-40.0); MEAN CORPUSCULAR HEMOGLOBIN 29.1 pg (27.0-32.0); MEAN CORPUSCULAR HGB CONC 32.6 g/dL (31.0-37.0); MEAN CORPUSCULAR VOLUME 89.1 fL (80.0-98.0); MONOCYTES PERCENT AUTO 10.6 % (0.0-15.0); NEUTROPHILS ABSOLUTE AUTO 7.2 K/uL (1.4-5.7); NEUTROPHILS PERCENT AUTO 76.8 % (48.0-80.0); NRBC ABSOLUTE 0 K/uL; PLATELET COUNT,PLT 413 K/uL (150-400); RED BLOOD CELL COUNT 4.75 M/uL (4.30-5.90); WHITE BLOOD CELL COUNT,WBC 9.35 K/uL (4.0-11.0)
[2023-03-26 10:33] LABS: A/G RATIO 0.9 (0.9-1.6); ALBUMIN 3.9 g/dL (3.4-5.0); BILIRUBIN TOTAL 0.4 mg/dL (0.2-1.0); CALCIUM 9.8 mg/dL (8.5-10.1); CARBON DIOXIDE,CO2 28.4 mmol/L (21.0-32.0); CREATININE 0.6 mg/dL (0.6-1.0); EST CRCL DRUG DOSING (CG) 89.34 mL/min; PROTEIN TOTAL,TP 8.1 g/dL (6.4-8.2)
[2023-03-26 10:36] LABS: LACTIC ACID 2.2 mmol/L (0.4-2.0)
[2023-03-26] MEDS ORDERED: Iopamidol 755 MG/ML 500 ML Multipack Bottle IVPUSH ONE (12:10)
[2023-03-26 14:55] VITALS: BP 162/105; PULSE 102
== END 2023-03-26 14:53 | disposition home or self-care (01) ==
LOC: MW.ED 09:26
DX: R10.13 Epigastric pain (principal); I10 Essential (primary) hypertension; J44.9 Chronic obstructive pulmonary disease, unspecified; E11.21 Type 2 diabetes mellitus with diabetic nephropathy; Z87.891 Personal history of nicotine dependence; Z88.1 Allergy status to other antibiotic agents; Z88.8 Allergy status to other drugs, medicaments and biological substances; Z88.5 Allergy status to narcotic agent; Z88.7 Allergy status to serum and vaccine; Z88.0 Allergy status to penicillin; Z88.2 Allergy status to sulfonamides; Z79.899 Other long term (current) drug therapy; Z86.16 Personal history of COVID-19; Z87.19 Personal history of other diseases of the digestive system
CPT/HCPCS: 36415; 74177; 80053; 83605; 83690; 85025; 85610; 87040; 87154; 96374; 96375; 96376; 99284; C9113; J3010; J3490; Q9967; 87077; 87186

== ENCOUNTER 2023-03-27 09:11 | Emergency (ER) | payer BC ==
[2023-03-27] MEDS ORDERED: Sodium Chloride 0.9% 10 ML Syringe FLUSH PRN (09:46)
[2023-03-27] MEDS ORDERED: Sodium Chloride 0.9% 2.5 ML Syringe FLUSH PRN (09:46)
[2023-03-27] MEDS ORDERED: Sodium Chloride 0.9% 1,000 ML IV ONE ×2 (09:46→10:00)
[2023-03-27] MEDS ORDERED: Levofloxacin/Dextrose 5%-Water 750 MG in Premix Bag 1 BAG IV ONE (09:50)
[2023-03-27] MEDS ORDERED: Norepinephrine 4 MG in Dextrose 5% in Water 246 ML IV SCH ×2 (10:00)
[2023-03-27] MEDS ORDERED: Norepinephrine Bit/D5W Premix 250 ML IV SCH (10:15)
[2023-03-27 10:33] LABS: BASOPHILS PERCENT AUTO 0.4 % (0.0-1.5); EOSINOPHILS ABSOLUTE AUTO 0.2 K/uL (0.0-0.7); EOSINOPHILS PERCENT AUTO 2.2 % (0.0-7.0); HEMATOCRIT 38.1 % (36.0-46.0); HEMOGLOBIN 12.7 g/dL (12.0-16.0); LYMPHOCYTES ABSOLUTE AUTO 1.6 K/uL (0.6-2.4); LYMPHOCYTES PERCENT AUTO 23.3 % (16.0-40.0); MEAN CORPUSCULAR HEMOGLOBIN 29.5 pg (27.0-32.0); MEAN CORPUSCULAR HGB CONC 33.3 g/dL (31.0-37.0); MEAN CORPUSCULAR VOLUME 88.6 fL (80.0-98.0); MONOCYTES ABSOLUTE AUTO 0.8 K/uL (0.0-0.8); MONOCYTES PERCENT AUTO 11.9 % (0.0-15.0); NEUTROPHILS ABSOLUTE AUTO 4.2 K/uL (1.4-5.7); NEUTROPHILS PERCENT AUTO 62.2 % (48.0-80.0); NRBC ABSOLUTE 0 K/uL; PLATELET COUNT,PLT 347 K/uL (150-400); WHITE BLOOD CELL COUNT,WBC 6.73 K/uL (4.0-11.0)
[2023-03-27 10:45] LABS: INR 0.97 (0.86-1.11)
[2023-03-27] MEDS ORDERED: Azithromycin 500 MG in Sodium Chloride 0.9% 250 ML IV SCH (10:45)
[2023-03-27 11:06] LABS: A/G RATIO 0.9 (0.9-1.6); ALBUMIN 3.5 g/dL (3.4-5.0); BILIRUBIN TOTAL 0.5 mg/dL (0.2-1.0); CALCIUM 9.5 mg/dL (8.5-10.1); CARBON DIOXIDE,CO2 25.1 mmol/L (21.0-32.0); CREATININE 0.8 mg/dL (0.6-1.0); EST CRCL DRUG DOSING (CG) 67.38 mL/min; POTASSIUM,K 4.3 mmol/L (3.5-5.1); PROTEIN TOTAL,TP 7.3 g/dL (6.4-8.2)
[2023-03-27 11:14] LABS: LACTIC ACID 2.2 mmol/L (0.4-2.0)
[2023-03-27 14:03] VITALS: BP 132/82; PULSE 72
== END 2023-03-27 14:00 | disposition home or self-care (01) ==
LOC: MW.ED 09:11
DX: J18.9 Pneumonia, unspecified organism (principal); I10 Essential (primary) hypertension; J44.9 Chronic obstructive pulmonary disease, unspecified; M19.90 Unspecified osteoarthritis, unspecified site; E11.21 Type 2 diabetes mellitus with diabetic nephropathy; Z86.16 Personal history of COVID-19; Z88.8 Allergy status to other drugs, medicaments and biological substances; Z88.1 Allergy status to other antibiotic agents; Z88.7 Allergy status to serum and vaccine; Z88.0 Allergy status to penicillin; Z88.2 Allergy status to sulfonamides; Z79.899 Other long term (current) drug therapy
CPT/HCPCS: 36415; 71046; 80053; 83605; 84145; 85025; 85610; 87040; 96365; 96366; 96367; 99291; J0456; J1956; J3490; J7030; J7050

== ENCOUNTER 2023-05-22 17:29 | Emergency (ER) | payer BC ==
[2023-05-22 18:32] LABS: CORONAVIRUS COVID-19 NAA NEGATIVE (NEGATIVE); INFLUENZA A NAA NEGATIVE (NEGATIVE); INFLUENZA B NAA NEGATIVE (NEGATIVE); RESPIRATORY SYNCYTIAL VIR NAA NEGATIVE (NEGATIVE)
[2023-05-22] MEDS ORDERED: Sodium Chloride 0.9% 10 ML Syringe FLUSH PRN (19:10)
[2023-05-22] MEDS ORDERED: Sodium Chloride 0.9% 2.5 ML Syringe FLUSH PRN (19:10)
[2023-05-22] MEDS ORDERED: Sodium Chloride 0.9% 1,000 ML IV ONE (19:12)
[2023-05-22] MEDS ORDERED: Ondansetron 4 MG/2 ML SDV IVPUSH ONE (19:39)
[2023-05-22 19:49] LABS: BASOPHILS PERCENT AUTO 0.3 % (0.0-1.5); EOSINOPHILS PERCENT AUTO 0.4 % (0.0-7.0); HEMATOCRIT 42.7 % (36.0-46.0); HEMOGLOBIN 14.3 g/dL (12.0-16.0); LYMPHOCYTES ABSOLUTE AUTO 1.6 K/uL (0.6-2.4); LYMPHOCYTES PERCENT AUTO 17.9 % (16.0-40.0); MEAN CORPUSCULAR HEMOGLOBIN 31.7 pg (27.0-32.0); MEAN CORPUSCULAR HGB CONC 33.5 g/dL (31.0-37.0); MEAN CORPUSCULAR VOLUME 94.7 fL (80.0-98.0); MONOCYTES PERCENT AUTO 10.8 % (0.0-15.0); NEUTROPHILS ABSOLUTE AUTO 6.3 K/uL (1.4-5.7); NEUTROPHILS PERCENT AUTO 70.6 % (48.0-80.0); NRBC ABSOLUTE 0 K/uL; PLATELET COUNT,PLT 312 K/uL (150-400); RED BLOOD CELL COUNT 4.51 M/uL (4.30-5.90)
[2023-05-22 20:26] LABS: A/G RATIO 0.9 (0.9-1.6); ALBUMIN 3.8 g/dL (3.4-5.0); BILIRUBIN TOTAL 0.4 mg/dL (0.2-1.0); CALCIUM 9.9 mg/dL (8.5-10.1); CARBON DIOXIDE,CO2 27.1 mmol/L (21.0-32.0); CREATININE 0.5 mg/dL (0.6-1.0); EST CRCL DRUG DOSING (CG) 103.08 mL/min; POTASSIUM,K 3.6 mmol/L (3.5-5.1)
[2023-05-22 20:29] LABS: LACTIC ACID 1.2 mmol/L (0.4-2.0)
[2023-05-22] MEDS ORDERED: Iopamidol 755 MG/ML 500 ML Multipack Bottle IVPUSH STA (21:34)
[2023-05-22 22:21] LABS: APPEARANCE,URINE CLEAR; BILIRUBIN,URINE NEGATIVE (NEGATIVE); COLOR,URINE YELLOW; GLUCOSE,URINE NEGATIVE (NEGATIVE); KETONES,URINE NEGATIVE (NEGATIVE); LEUKOCYTE ESTERASE,URINE NEGATIVE (NEGATIVE); NITRITE,URINE NEGATIVE (NEGATIVE); OCCULT BLOOD,URINE NEGATIVE (NEGATIVE); PROTEIN,URINE NEGATIVE (NEGATIVE); UROBILINOGEN,URINE 0.2 EU/dL (<2.0)
[2023-05-22 22:26] LABS: BACTERIA,URINE RARE (NEGATIVE); MUCUS,URINE LIGHT (NONE-MOD); RBC,URINE 0-2 (0-2/HPF); SQUAMOUS EPITHELIAL CELLS,UR FEW; WBC,URINE 0-2 (0-5/HPF)
[2023-05-22 22:30] LABS: AMPHETAMINES SCREEN, URINE NEGATIVE (CUTOFF=500); BARBITURATE SCREEN,URINE NEGATIVE (CUTOFF=200); BENZODIAZEPINES SCREEN,URINE NEGATIVE (CUTOFF=150); BUPRENORPHINE SCREEN,URINE NEGATIVE (CUTOFF=10); METHADONE SCREEN, URINE NEGATIVE (CUTOFF=200); METHAMPHETAMINES SCREEN, URINE NEGATIVE (CUTOFF=500); OXYCODONE SCREEN,URINE NEGATIVE (CUT0FF=100); PCP SCREEN,URINE NEGATIVE (CUTOFF=25); PROPOXYPHENE SCREEN,URINE NEGATIVE (CUTOFF=300); THC SCREEN,URINE 20 NG/ML PRESUMPTIVE POSITIVE (CUTOFF=50)
[2023-05-22] MEDS ORDERED: Morphine 2 MG/ML SYRINGE IVPUSH ONE (23:19)
[2023-05-22] MEDS ORDERED: Naloxone 0.4 MG/ML SDV IVPUSH PRN (23:19)
[2023-05-23 01:06] VITALS: BP 129/78; PULSE 75
== END 2023-05-22 23:57 | disposition home or self-care (01) ==
LOC: MW.ED 17:29
DX: K52.9 Noninfective gastroenteritis and colitis, unspecified (principal); E11.9 Type 2 diabetes mellitus without complications; J44.9 Chronic obstructive pulmonary disease, unspecified; I10 Essential (primary) hypertension; Z86.16 Personal history of COVID-19; Z20.822 Contact with and (suspected) exposure to COVID-19; Z88.0 Allergy status to penicillin; Z88.1 Allergy status to other antibiotic agents; Z88.2 Allergy status to sulfonamides; Z88.8 Allergy status to other drugs, medicaments and biological substances; Z88.7 Allergy status to serum and vaccine; Z79.899 Other long term (current) drug therapy
CPT/HCPCS: 0241U; 36415; 74177; 80053; 80305; 81001; 83605; 83690; 85025; 87040; 93005; 96361; 96374; 96375; 99284; J2270; J2405; J3490; J7030; Q9967; 93010

== ENCOUNTER 2023-12-01 18:21 | Emergency (ER) | payer MEDICAID, MEDICARE ==
[2023-12-01] MEDS: Acetaminophen/HYDROcodone 325-5 MG Tab PO ONE (18:56)
[2023-12-01] MEDS: Sodium Chloride 0.9% 1,000 ML IV ONE (19:31)
[2023-12-01] MEDS: Ondansetron 4 MG/2 ML SDV IVPUSH ONE (19:31)
[2023-12-01] MEDS: HYDROmorphone 1 MG/ML Syringe IVPUSH ONE ×2 (19:31→21:37)
[2023-12-01] MEDS: Acetaminophen/HYDROcodone 325-5 MG Tab PO STA (22:43)
[2023-12-01 22:50] VITALS: BP 154/82; PULSE 74
== END 2023-12-01 22:48 | disposition home or self-care (01) ==
LOC: MW.ED 18:21
DX: S22.089A Unspecified fracture of T11-T12 vertebra, initial encounter for closed fracture (principal); S22.069A Unspecified fracture of T7-T8 vertebra, initial encounter for closed fracture; S32.039A Unspecified fracture of third lumbar vertebra, initial encounter for closed fracture; I10 Essential (primary) hypertension; J44.9 Chronic obstructive pulmonary disease, unspecified; E11.9 Type 2 diabetes mellitus without complications; Z79.899 Other long term (current) drug therapy; Z88.8 Allergy status to other drugs, medicaments and biological substances; W18.30XA Fall on same level, unspecified, initial encounter
CPT/HCPCS: 70450; 72125; 72128; 72131; 96374; 96375; 96376; 99284; A9270; J1170; J2405; J7030

== ENCOUNTER 2024-02-04 21:36 | Emergency (ER) | payer MEDICAID ==
[2024-02-04] MEDS: Sodium Chloride 0.9% 10 ML Syringe FLUSH PRN (21:50)
[2024-02-04] MEDS: Sodium Chloride 0.9% 2.5 ML Syringe FLUSH PRN (21:50)
[2024-02-04 22:15] LABS: BASOPHILS ABSOLUTE AUTO 0.04 K/uL (0.00-0.20); BASOPHILS PERCENT AUTO 0.4 % (0.0-1.0); EOSINOPHILS ABSOLUTE AUTO 0.19 K/uL (0.00-0.45); EOSINOPHILS PERCENT AUTO 1.8 % (0.0-6.0); HEMATOCRIT 39.5 % (37.0-47.0); HEMOGLOBIN 13.5 g/dL (12.0-16.0); IMMATURE GRAN ABSOLUTE AUTO 0.02 K/uL (0.00-0.05); IMMATURE GRAN PERCENT AUTO 0.2 % (0.0-0.4); LYMPHOCYTES PERCENT AUTO 17.1 % (24.0-44.0); MEAN CORPUSCULAR HEMOGLOBIN 30.2 pg (28.0-32.0); MEAN CORPUSCULAR HGB CONC 34.2 g/dL (32.0-36.0); MEAN CORPUSCULAR VOLUME 88.4 fL (83.0-99.0); MEAN PLATELET VOLUME 8.6 fL (9.4-12.3); MONOCYTES ABSOLUTE AUTO 0.99 K/uL (0.00-0.80); MONOCYTES PERCENT AUTO 9.4 % (0.0-8.0); NEUTROPHILS ABSOLUTE AUTO 7.48 K/uL (1.80-7.70); NEUTROPHILS PERCENT AUTO 71.1 % (41.0-71.0); PLATELET COUNT,PLT 277 K/uL (150-400); RED BLOOD CELL COUNT 4.47 M/uL (4.10-5.30); WHITE BLOOD CELL COUNT,WBC 10.52 K/uL (3.9-11.3)
[2024-02-04] MEDS: Ondansetron 4 MG/2 ML SDV IVPUSH ONE (22:21)
[2024-02-04] MEDS: Morphine 4 MG/ML Syringe IVPUSH ONE (22:21)
[2024-02-04 22:40] LABS: A/G RATIO 0.9 (0.9-1.6); ALBUMIN 3.3 g/dL (3.4-5.0); BILIRUBIN TOTAL 0.2 mg/dL (0.2-1.0); CALCIUM 8.4 mg/dL (8.5-10.1); CARBON DIOXIDE,CO2 28.6 mmol/L (21.0-32.0); CREATININE 0.5 mg/dL (0.6-1.0); EST CRCL DRUG DOSING (CG) 103.63 mL/min; POTASSIUM,K 4.1 mmol/L (3.5-5.1); PROTEIN TOTAL,TP 7.1 g/dL (6.4-8.2)
[2024-02-04] MEDS: Iopamidol 755 MG/ML 500 ML Multipack Bottle IVPUSH ONE (23:23)
[2024-02-05 01:03] VITALS: BP 136/91; PULSE 86
== END 2024-02-05 01:00 | disposition home or self-care (01) ==
LOC: MW.ED 21:36
DX: R07.2 Precordial pain (principal); I10 Essential (primary) hypertension; J44.9 Chronic obstructive pulmonary disease, unspecified; M19.90 Unspecified osteoarthritis, unspecified site; E11.9 Type 2 diabetes mellitus without complications; Z75.8 Other problems related to medical facilities and other health care; Z88.0 Allergy status to penicillin; Z88.1 Allergy status to other antibiotic agents; Z88.2 Allergy status to sulfonamides; Z88.7 Allergy status to serum and vaccine; Z88.8 Allergy status to other drugs, medicaments and biological substances; Z79.82 Long term (current) use of aspirin; Z79.899 Other long term (current) drug therapy
CPT/HCPCS: 36415; 71045; 71270; 74178; 80053; 84484; 85025; 93005; 96374; 96375; 99285; J2270; J2405; J3490; Q9967; 93010; 99284

== ENCOUNTER 2024-03-31 20:02 | Inpatient (IN) | payer MEDICAID ==
[2024-03-31 20:24] LABS: BASOPHILS ABSOLUTE AUTO 0.05 K/uL (0.00-0.20); BASOPHILS PERCENT AUTO 0.3 % (0.0-1.0); EOSINOPHILS ABSOLUTE AUTO 0.16 K/uL (0.00-0.45); HEMATOCRIT 39.9 % (37.0-47.0); HEMOGLOBIN 13.4 g/dL (12.0-16.0); IMMATURE GRAN ABSOLUTE AUTO 0.07 K/uL (0.00-0.05); IMMATURE GRAN PERCENT AUTO 0.4 % (0.0-0.4); LYMPHOCYTES ABSOLUTE AUTO 3.27 K/uL (1.00-4.80); LYMPHOCYTES PERCENT AUTO 20.7 % (24.0-44.0); MEAN CORPUSCULAR HEMOGLOBIN 30.2 pg (28.0-32.0); MEAN CORPUSCULAR HGB CONC 33.6 g/dL (32.0-36.0); MEAN CORPUSCULAR VOLUME 90.1 fL (83.0-99.0); MEAN PLATELET VOLUME 8.5 fL (9.4-12.3); MONOCYTES ABSOLUTE AUTO 1.25 K/uL (0.00-0.80); MONOCYTES PERCENT AUTO 7.9 % (0.0-8.0); NEUTROPHILS ABSOLUTE AUTO 11.02 K/uL (1.80-7.70); NEUTROPHILS PERCENT AUTO 69.7 % (41.0-71.0); PLATELET COUNT,PLT 310 K/uL (150-400); RED BLOOD CELL COUNT 4.43 M/uL (4.10-5.30); WHITE BLOOD CELL COUNT,WBC 15.82 K/uL (3.9-11.3)
[2024-03-31 20:35] LABS: BASE EXCESS VENOUS 2.7 (-2.0-3.0); PH,VENOUS 7.34 (7.31-7.41)
[2024-03-31] MEDS: Sodium Chloride 0.9% 1,000 ML IV ONE ×2 (20:38)
[2024-03-31] MEDS: Metoclopramide 10 MG/2 ML SDV IVPUSH ONE (20:42)
[2024-03-31 20:56] LABS: MAGNESIUM 1.8 mg/dL (1.8-2.4); PRO B-TYPE NATRIUR PEPT,BNPPRO 65 pg/mL (0-125)
[2024-03-31 21:02] LABS: CREATINE KINASE,CK 36 U/L (26-308); ETHANOL BLOOD MEDICAL <3 mg/dL
[2024-03-31 21:13] LABS: CORONAVIRUS COVID-19 NAA NEGATIVE (NEGATIVE); INFLUENZA A NAA NEGATIVE (NEGATIVE); INFLUENZA B NAA NEGATIVE (NEGATIVE)
[2024-03-31 21:23] LABS: CREATININE 0.4 mg/dL (0.6-1.0); EST CRCL DRUG DOSING (CG) 112.38 mL/min
[2024-03-31] MEDS: Albuterol/Ipratropium 3.0-0.5 MG/3 ML Neb Soln NEB ONE (21:23)
[2024-03-31 21:26] LABS: APPEARANCE,URINE CLEAR; BILIRUBIN,URINE NEGATIVE (NEGATIVE); COLOR,URINE YELLOW; GLUCOSE,URINE 500 mg/dL (NEGATIVE); KETONES,URINE NEGATIVE (NEGATIVE); LEUKOCYTE ESTERASE,URINE NEGATIVE (NEGATIVE); NITRITE,URINE NEGATIVE (NEGATIVE); OCCULT BLOOD,URINE NEGATIVE (NEGATIVE); PROTEIN,URINE NEGATIVE (NEGATIVE); UROBILINOGEN,URINE 0.2 EU/dL (<2.0)
[2024-03-31 21:35] LABS: AMPHETAMINES SCREEN, URINE NEGATIVE (CUTOFF=500); BARBITURATE SCREEN,URINE NEGATIVE (CUTOFF=200); BENZODIAZEPINES SCREEN,URINE NEGATIVE (CUTOFF=150); BUPRENORPHINE SCREEN,URINE NEGATIVE (CUTOFF=10); METHADONE SCREEN, URINE NEGATIVE (CUTOFF=200); METHAMPHETAMINES SCREEN, URINE NEGATIVE (CUTOFF=500); OXYCODONE SCREEN,URINE NEGATIVE (CUT0FF=100); PCP SCREEN,URINE NEGATIVE (CUTOFF=25); THC SCREEN,URINE 20 NG/ML PRESUMPTIVE POSITIVE (CUTOFF=50)
[2024-03-31] MEDS: Iopamidol 755 MG/ML 500 ML Multipack Bottle IVPUSH ONE (22:31)
[2024-03-31] MEDS: Meclizine 25 MG Tab PO ONE (23:30)
[2024-03-31] MEDS ORDERED: Acetaminophen 650 MG Supp RECTAL PRN (23:42)
[2024-03-31] MEDS ORDERED: Albuterol/Ipratropium 3.0-0.5 MG/3 ML Neb Soln NEB PRN (23:42)
[2024-03-31] MEDS ORDERED: Polyethylene Glycol 3350 Powder 17 GM Packet PO PRN (23:45)
[2024-03-31 23:57] LABS: A/G RATIO 1.1 (0.9-1.6); ALBUMIN 3.6 g/dL (3.4-5.0); BILIRUBIN TOTAL 0.3 mg/dL (0.2-1.0); CALCIUM 7.8 mg/dL (8.5-10.1); CARBON DIOXIDE,CO2 29.7 mmol/L (21.0-32.0); CREATININE 0.5 mg/dL (0.6-1.0); EST CRCL DRUG DOSING (CG) 89.9 mL/min; POTASSIUM,K 3.3 mmol/L (3.5-5.1); PROTEIN TOTAL,TP 6.8 g/dL (6.4-8.2)
[2024-03-31] MEDS: Levofloxacin/Dextrose 5%-Water 750 MG in Premix Bag 1 BAG IV STA (23:57)
[2024-04-01] MEDS: Sodium Chloride 0.9% 1,000 ML IV SCH (01:05)
[2024-04-01] MEDS: Acetaminophen 325 MG Tab PO PRN (01:13)
[2024-04-01] MEDS: Melatonin 3 MG Tab PO PRN (01:14)
[2024-04-01] MEDS: Ondansetron 4 MG/2 ML SDV IVPUSH PRN (03:04)
[2024-04-01] MEDS: Gabapentin 800 MG Tab PO SCH ×2 (04:27→14:57)
[2024-04-01] MEDS: traMADol 50 MG Tab PO SCH (04:27)
[2024-04-01 06:39] LABS: HEMATOCRIT 37.2 % (37.0-47.0); HEMOGLOBIN 12.6 g/dL (12.0-16.0); MEAN CORPUSCULAR HEMOGLOBIN 30.2 pg (28.0-32.0); MEAN CORPUSCULAR HGB CONC 33.9 g/dL (32.0-36.0); MEAN CORPUSCULAR VOLUME 89.2 fL (83.0-99.0); MEAN PLATELET VOLUME 8.5 fL (9.4-12.3); PLATELET COUNT,PLT 281 K/uL (150-400); RED BLOOD CELL COUNT 4.17 M/uL (4.10-5.30); WHITE BLOOD CELL COUNT,WBC 15.81 K/uL (3.9-11.3)
[2024-04-01 07:00] LABS: CALCIUM 8.1 mg/dL (8.5-10.1); CARBON DIOXIDE,CO2 30.6 mmol/L (21.0-32.0); CREATININE 0.3 mg/dL (0.6-1.0); EST CRCL DRUG DOSING (CG) 170.47 mL/min; MAGNESIUM 1.6 mg/dL (1.8-2.4); POTASSIUM,K 3.2 mmol/L (3.5-5.1)
[2024-04-01] MEDS: Potassium Chloride 20 MEQ Tab.ER PO ONE (10:17)
[2024-04-01] MEDS: Magnesium Sulfate/Water 2 GM in Premix Bag 1 BAG IV ONE (10:18)
[2024-04-01] MEDS: amLODIPine 5 MG Tab PO SCH (10:29)
[2024-04-01] MEDS: Acetaminophen/HYDROcodone 325-5 MG Tab PO PRN (11:25)
[2024-04-01 11:57] LABS: HEMOGLOBIN A1C 6.9 %
[2024-04-01] MEDS ORDERED: 50% Dextrose in Water 50 ML Syringe IVPUSH PRN (12:39)
[2024-04-01] MEDS ORDERED: Glucagon,Human Recombinant 1 MG Vial IM PRN (12:39)
[2024-04-01] MEDS ORDERED: Insulin Aspart 100 Units/ML 3 ML Pen SUBCUT SCH (17:00)
[2024-04-01] MEDS: Enoxaparin 40 MG/0.4 ML Syringe SUBCUT SCH (17:21)
[2024-04-01] MEDS ORDERED: Losartan 50 MG Tab PO SCH (19:30)
[2024-04-01 20:39] VITALS: BP 179/117; PULSE 96
[2024-04-01] MEDS: Lidocaine 4% 1 each Patch TOP SCH (20:39)
[2024-04-01] MEDS: Doxazosin 2 MG Tab PO SCH (20:45)
[2024-04-01] MEDS ORDERED: PRAZOSIN 1 MG PO SCH (21:00)
[2024-04-01] MEDS ORDERED: Venlafaxine 75 MG Cap.ER PO SCH (21:00)
[2024-04-01] MEDS ORDERED: LUMATEPERONE TOSYLATE 42 MG PO SCH (21:00)
[2024-04-01] MEDS ORDERED: Levofloxacin/Dextrose 5%-Water 750 MG in Premix Bag 1 BAG IV SCH (23:00)
[2024-04-02] MEDS ORDERED: Polyethylene Glycol 3350 Powder 17 GM Packet PO SCH (09:00)
== END 2024-04-01 10:05 | disposition left against medical advice (07) | DRG 193 ==
LOC: MW.ED 20:02 → UNDOADMIN 23:32 → MW.MS 23:32
PROVIDERS: ADMIT Family Medicine; ATTEND Family Medicine
DX: J18.9 Pneumonia, unspecified organism (principal); J96.01 Acute respiratory failure with hypoxia; I10 Essential (primary) hypertension; J44.9 Chronic obstructive pulmonary disease, unspecified; M54.2 Cervicalgia; M54.9 Dorsalgia, unspecified; F41.9 Anxiety disorder, unspecified; F31.9 Bipolar disorder, unspecified; M51.16 Intervertebral disc disorders with radiculopathy, lumbar region; D64.9 Anemia, unspecified; E11.21 Type 2 diabetes mellitus with diabetic nephropathy; M19.90 Unspecified osteoarthritis, unspecified site; G43.909 Migraine, unspecified, not intractable, without status migrainosus; Z88.1 Allergy status to other antibiotic agents; Z88.0 Allergy status to penicillin; Z88.7 Allergy status to serum and vaccine; Z88.8 Allergy status to other drugs, medicaments and biological substances; Z88.2 Allergy status to sulfonamides; Z98.49 Cataract extraction status, unspecified eye; Z97.3 Presence of spectacles and contact lenses; Z79.82 Long term (current) use of aspirin; Z79.899 Other long term (current) drug therapy
CPT/HCPCS: 0240U; 36415; 70450; 70450-26; 70496; 70496-26; 70498; 70498-26; 71045; 71045-26; 80048; 80053; 80305-QW; 80307; 81003; 82009; 82550; 82565; 82803; 82947; 83036; 83735; 83880; 84484; 85025; 85027; 87040; 87899; 93005; 93010; 96361; 96374; 99285; 99285-25; A9270-GY; J1650; J1956; J2405; J2765; J3475; J7030; J7620-GY; Q9967